=== PATIENT | male | born 1945 | race Caucasian/White ===

== ENCOUNTER 2017-09-25 15:04 | Inpatient (IN) ==
[2017-09-25] MEDS ORDERED: POTASSIUM CHLORIDE 20 MEQ TABLET PO PRN (17:51)
[2017-09-25] MEDS ORDERED: MAGNESIUM SULF RIDER 2 GM in PREMIX 1 EACH IV PRN (17:51)
[2017-09-25] MEDS ORDERED: ALBUTEROL/IPRATROPIUM 3 ML NEB RESP TX PRN (17:51)
[2017-09-25] MEDS ORDERED: ONDANSETRON 4 MG/2 ML VIAL IV PRN (17:51)
[2017-09-25] MEDS ORDERED: ACETAMINOPHEN 325 MG TABLET PO PRN (17:51)
[2017-09-25] MEDS ORDERED: GLUCAGON 1 MG VIAL IM PRN (17:57)
[2017-09-25] MEDS ORDERED: DEXTROSE 50% 25 GM/50 ML VIAL IV PRN (17:57)
[2017-09-25] MEDS: ALBUTEROL/IPRATROPIUM 3 ML NEB RESP TX SCH ×2 (19:50→23:52)
[2017-09-25] MEDS ORDERED: LEVOFLOXACIN INJ 750 MG in PREMIX 1 EACH IV SCH (20:00)
[2017-09-25 20:22] LABS: Basophils % 0.2 % (0.0-0.8); Hematocrit 42.5 VOL% (42.0-52.0); Hemoglobin 14.2 GM/DL (14.0-18.0); Immature Granulocytes % 0.6 %; Immature Granulocytes Absolute 0.03 #; Lymphocytes # 0.4 10*3/uL (1.4-4.0); Lymphocytes % 6.9 % (21.2-54.2); Mean Corpuscular HGB Conc 33.4 GM/DL (32-36); Mean Corpuscular Hemoglobin 29 PG (27-34); Mean Platelet Volume 9.8 FL (9.6-12.0); Monocytes # 0.1 10*3/uL (0.11-0.8); Monocytes % 1.9 % (1.7-12.7); Neutrophils # 4.7 10*3/uL (1.4-7.4); Neutrophils % 90.4 % (38.7-73.9); Platelet Count 215 T/CUMM (130-400); Red Blood Count 4.83 MC/CUMM (3.8-5.5); Red Cell Distribution Width 13.7 % (9.3-17.3); White Blood Count 5.2 T/CUMM (4-12)
[2017-09-25 20:42] LABS: Calcium 8.9 MG/DL (8.5-10.1); Osmolality,Calculated 282.5 MOS/KG (273-304); Potassium 4.4 MMOL/L (3.5-5.1)
[2017-09-25] MEDS: INSULIN LISPRO 100 UNIT/ML SUBCUT SCH (22:17)
[2017-09-25] MEDS: ATORVASTATIN 20 MG TABLET PO SCH (22:18)
[2017-09-25] MEDS: CARVEDILOL 3.125 MG TABLET PO SCH (22:19)
[2017-09-25] MEDS: MOMETASONE 220 MCG/PUFF INHALER 14 DOSE INH SCH (22:20)
[2017-09-25] MEDS ORDERED: methylPREDNISolone SOD SUC 40 MG/1 ML VIAL IV ONE (23:59)
[2017-09-26] MEDS ORDERED: diphenhydrAMINE 50 MG/1 ML VIAL IV ONE ×2 (00:30→23:30)
[2017-09-26] MEDS: ENOXAPARIN 100 MG/ML SYRINGE SUBCUT SCH ×2 (01:16→13:45)
[2017-09-26] MEDS: ALBUTEROL 2.5 MG/3 ML NEB RESP TX PRN (04:48)
[2017-09-26] MEDS: NITROGLYCERIN 2% OINT 1 INCH/GM PACK TOP SCH ×5 (05:14→19:11)
[2017-09-26 06:30] LABS: Basophils % 0.1 % (0.0-0.8); Hematocrit 41.7 VOL% (42.0-52.0); Hemoglobin 13.6 GM/DL (14.0-18.0); Immature Granulocytes % 0.6 %; Immature Granulocytes Absolute 0.05 #; Lymphocytes # 0.8 10*3/uL (1.4-4.0); Lymphocytes % 9.7 % (21.2-54.2); Mean Corpuscular HGB Conc 32.6 GM/DL (32-36); Mean Corpuscular Hemoglobin 29 PG (27-34); Mean Corpuscular Volume 89.1 FL (87-102); Mean Platelet Volume 10.8 FL (9.6-12.0); Monocytes # 0.3 10*3/uL (0.11-0.8); Monocytes % 3.6 % (1.7-12.7); Neutrophils # 6.7 10*3/uL (1.4-7.4); Platelet Count 220 T/CUMM (130-400); Red Blood Count 4.68 MC/CUMM (3.8-5.5); Red Cell Distribution Width 13.9 % (9.3-17.3); White Blood Count 7.8 T/CUMM (4-12)
[2017-09-26 07:16] LABS: Calcium 9.3 MG/DL (8.5-10.1); Osmolality,Calculated 278.8 MOS/KG (273-304); Potassium 4.7 MMOL/L (3.5-5.1); Risk Ratio 3.17; Thyroid Stimulating Hormone 0.775 uIU/ml (0.358-3.74); VLDL CHOLESTEROL 8.6 MG/DL
[2017-09-26] MEDS: ALBUTEROL/IPRATROPIUM 3 ML NEB RESP TX SCH ×3 (08:10→21:33)
[2017-09-26] MEDS ORDERED: NITROGLYCERIN SL 0.4 MG TABLET SL ONE (09:29)
[2017-09-26] MEDS: cefTRIAXone 1,000 MG in SYRINGE 1 EACH IV SCH (09:44)
[2017-09-26] MEDS: MOMETASONE 220 MCG/PUFF INHALER 14 DOSE INH SCH ×2 (09:46→20:58)
[2017-09-26] MEDS: INSULIN LISPRO 100 UNIT/ML SUBCUT SCH ×4 (09:47→21:15)
[2017-09-26] MEDS: PANTOPRAZOLE 40 MG TABLET PO SCH (09:48)
[2017-09-26] MEDS: LISINOPRIL 20 MG TABLET PO SCH (09:48)
[2017-09-26] MEDS: predniSONE 5 MG TABLET PO SCH (09:48)
[2017-09-26] MEDS: CARVEDILOL 3.125 MG TABLET PO SCH ×2 (09:48→20:57)
[2017-09-26] MEDS: ASPIRIN EC 325 MG TABLET PO SCH (09:49)
[2017-09-26] MEDS: AZITHROMYCIN INJ 500 MG in SODIUM CHLORIDE 0.9% 250 ML IV SCH (09:50)
[2017-09-26] MEDS: ACETYLCYSTEINE 20% 800 MG/4 ML VIAL RESP TX SCH ×2 (13:28→21:33)
[2017-09-26] MEDS: ATORVASTATIN 20 MG TABLET PO SCH (20:57)
[2017-09-27] MEDS: ENOXAPARIN 100 MG/ML SYRINGE SUBCUT SCH ×2 (01:05→13:40)
[2017-09-27] MEDS: ALBUTEROL/IPRATROPIUM 3 ML NEB RESP TX SCH ×4 (01:21→19:59)
[2017-09-27] MEDS: ACETYLCYSTEINE 20% 800 MG/4 ML VIAL RESP TX SCH ×4 (01:30→19:57)
[2017-09-27] MEDS: NITROGLYCERIN 2% OINT 1 INCH/GM PACK TOP SCH ×5 (01:49→18:04)
[2017-09-27] MEDS: predniSONE 5 MG TABLET PO SCH (08:56)
[2017-09-27] MEDS: LISINOPRIL 20 MG TABLET PO SCH (08:56)
[2017-09-27] MEDS: CARVEDILOL 3.125 MG TABLET PO SCH ×2 (08:56→21:13)
[2017-09-27] MEDS: ASPIRIN EC 325 MG TABLET PO SCH (08:56)
[2017-09-27] MEDS: PANTOPRAZOLE 40 MG TABLET PO SCH (08:56)
[2017-09-27] MEDS: CLORAZEPATE 3.75 MG TABLET PO PRN (08:56)
[2017-09-27] MEDS: MOMETASONE 220 MCG/PUFF INHALER 14 DOSE INH SCH ×2 (08:58→21:11)
[2017-09-27] MEDS: cefTRIAXone 1,000 MG in SYRINGE 1 EACH IV SCH (08:58)
[2017-09-27] MEDS: AZITHROMYCIN INJ 500 MG in SODIUM CHLORIDE 0.9% 250 ML IV SCH (09:01)
[2017-09-27] MEDS: INSULIN LISPRO 100 UNIT/ML SUBCUT SCH ×4 (09:32→21:13)
[2017-09-27] MEDS: ALBUTEROL 2.5 MG/3 ML NEB RESP TX PRN ×2 (10:04→16:50)
[2017-09-27] MEDS ORDERED: BISACODYL 10 MG SUPP RECTAL PRN (11:44)
[2017-09-27] MEDS ORDERED: FUROSEMIDE 40 MG/4 ML VIAL IV ONE ×2 (12:59→22:00)
[2017-09-27] MEDS ORDERED: POTASSIUM CHLORIDE 20 MEQ TABLET PO ONE (13:10)
[2017-09-27] MEDS ORDERED: methylPREDNISolone SOD SUC 40 MG/1 ML VIAL IV SCH (17:00)
[2017-09-27] MEDS: FAMOTIDINE 20 MG TABLET PO SCH ×2 (18:04→21:13)
[2017-09-27] MEDS: methylPREDNISolone SOD SUC 125 MG/2 ML VIAL IV SCH (18:04)
[2017-09-27] MEDS: diphenhydrAMINE CAP 25 MG CAPSULE PO SCH (18:04)
[2017-09-27] MEDS: ATORVASTATIN 20 MG TABLET PO SCH (21:13)
[2017-09-28] MEDS: CLORAZEPATE 3.75 MG TABLET PO PRN (00:13)
[2017-09-28] MEDS: NITROGLYCERIN 2% OINT 1 INCH/GM PACK TOP SCH ×4 (00:13→18:09)
[2017-09-28] MEDS: diphenhydrAMINE CAP 25 MG CAPSULE PO SCH ×4 (00:13→18:04)
[2017-09-28] MEDS: ENOXAPARIN 100 MG/ML SYRINGE SUBCUT SCH ×2 (00:13→13:28)
[2017-09-28] MEDS: ALBUTEROL/IPRATROPIUM 3 ML NEB RESP TX SCH ×4 (01:20→20:04)
[2017-09-28] MEDS: ACETYLCYSTEINE 20% 800 MG/4 ML VIAL RESP TX SCH ×3 (03:02→20:06)
[2017-09-28 05:24] LABS: Basophils % 0.2 % (0.0-0.8); Hematocrit 43.1 VOL% (42.0-52.0); Hemoglobin 14.6 GM/DL (14.0-18.0); Immature Granulocytes % 0.6 %; Immature Granulocytes Absolute 0.04 #; Lymphocytes # 0.7 10*3/uL (1.4-4.0); Lymphocytes % 10.4 % (21.2-54.2); Mean Corpuscular HGB Conc 33.9 GM/DL (32-36); Mean Corpuscular Hemoglobin 29 PG (27-34); Mean Corpuscular Volume 86.7 FL (87-102); Mean Platelet Volume 10.7 FL (9.6-12.0); Monocytes # 0.2 10*3/uL (0.11-0.8); Monocytes % 3.7 % (1.7-12.7); Neutrophils # 5.6 10*3/uL (1.4-7.4); Neutrophils % 85.1 % (38.7-73.9); Platelet Count 241 T/CUMM (130-400); Red Blood Count 4.97 MC/CUMM (3.8-5.5); Red Cell Distribution Width 13.6 % (9.3-17.3); White Blood Count 6.6 T/CUMM (4-12)
[2017-09-28] MEDS: methylPREDNISolone SOD SUC 125 MG/2 ML VIAL IV SCH ×2 (05:27→18:06)
[2017-09-28 05:56] LABS: Calcium 8.8 MG/DL (8.5-10.1); Osmolality,Calculated 284.7 MOS/KG (273-304); Potassium 4.5 MMOL/L (3.5-5.1)
[2017-09-28] MEDS: INSULIN LISPRO 100 UNIT/ML SUBCUT SCH ×4 (07:55→21:50)
[2017-09-28] MEDS ORDERED: POTASSIUM CHLORIDE RIDER 10 MEQ in PREMIX 1 EACH IV PRN (08:40)
[2017-09-28] MEDS ORDERED: MAGNESIUM SULF RIDER 2 GM in PREMIX 1 EACH IV PRN (08:40)
[2017-09-28] MEDS: cefTRIAXone 1,000 MG in SYRINGE 1 EACH IV SCH (09:00)
[2017-09-28] MEDS: MOMETASONE 220 MCG/PUFF INHALER 14 DOSE INH SCH ×2 (09:00→21:49)
[2017-09-28] MEDS ORDERED: HEPARIN/NACL 0.9% 2 UNITS/ML 0 ML IV ONE (09:02)
[2017-09-28] MEDS: AZITHROMYCIN INJ 500 MG in SODIUM CHLORIDE 0.9% 250 ML IV SCH (09:03)
[2017-09-28] MEDS: FAMOTIDINE 20 MG TABLET PO SCH ×2 (09:05→21:48)
[2017-09-28] MEDS: ASPIRIN EC 325 MG TABLET PO SCH (09:05)
[2017-09-28] MEDS: LISINOPRIL 20 MG TABLET PO SCH (09:05)
[2017-09-28] MEDS: PANTOPRAZOLE 40 MG TABLET PO SCH (09:05)
[2017-09-28] MEDS: POTASSIUM CHLORIDE 20 MEQ TABLET PO SCH (09:05)
[2017-09-28] MEDS: CARVEDILOL 3.125 MG TABLET PO SCH ×2 (09:05→21:48)
[2017-09-28] MEDS ORDERED: diphenhydrAMINE CAP 50 MG CAPSULE PO ONE (11:04)
[2017-09-28] MEDS ORDERED: DIAZEPAM 5 MG TABLET PO ONE (11:05)
[2017-09-28] MEDS: SPIRONOLACTONE 25 MG TABLET PO SCH (18:04)
[2017-09-28] MEDS: FUROSEMIDE 40 MG TABLET PO SCH (18:04)
[2017-09-28] MEDS: ATORVASTATIN 20 MG TABLET PO SCH (21:48)
[2017-09-29] MEDS: ACETYLCYSTEINE 20% 800 MG/4 ML VIAL RESP TX SCH ×5 (00:27→17:53)
[2017-09-29] MEDS: ALBUTEROL/IPRATROPIUM 3 ML NEB RESP TX SCH ×4 (00:27→17:45)
[2017-09-29] MEDS: ENOXAPARIN 100 MG/ML SYRINGE SUBCUT SCH (00:55)
[2017-09-29] MEDS: diphenhydrAMINE CAP 25 MG CAPSULE PO SCH ×4 (00:55→18:47)
[2017-09-29] MEDS: NITROGLYCERIN 2% OINT 1 INCH/GM PACK TOP SCH ×4 (00:55→18:46)
[2017-09-29] MEDS: methylPREDNISolone SOD SUC 125 MG/2 ML VIAL IV SCH (05:32)
[2017-09-29 05:52] LABS: Basophils % 0.1 % (0.0-0.8); Hematocrit 41.3 VOL% (42.0-52.0); Hemoglobin 14.1 GM/DL (14.0-18.0); Immature Granulocytes % 0.5 %; Immature Granulocytes Absolute 0.05 #; Lymphocytes # 1.1 10*3/uL (1.4-4.0); Lymphocytes % 11.6 % (21.2-54.2); Mean Corpuscular HGB Conc 34.1 GM/DL (32-36); Mean Corpuscular Hemoglobin 29 PG (27-34); Mean Platelet Volume 10.8 FL (9.6-12.0); Monocytes # 0.7 10*3/uL (0.11-0.8); Monocytes % 6.7 % (1.7-12.7); Neutrophils # 7.9 10*3/uL (1.4-7.4); Neutrophils % 81.1 % (38.7-73.9); Platelet Count 244 T/CUMM (130-400); Red Cell Distribution Width 13.2 % (9.3-17.3); White Blood Count 9.8 T/CUMM (4-12)
[2017-09-29] MEDS ORDERED: DIAZEPAM 5 MG TABLET PO ONE (06:00)
[2017-09-29] MEDS ORDERED: diphenhydrAMINE CAP 50 MG CAPSULE PO ONE (06:00)
[2017-09-29] MEDS ORDERED: HEPARIN/NACL 0.9% 2 UNITS/ML 2,000 ML IV ONE (06:44)
[2017-09-29] MEDS: PANTOPRAZOLE 40 MG TABLET PO SCH ×2 (06:44→12:43)
[2017-09-29] MEDS ORDERED: LIDOCAINE 1% 20 ML VIAL ONE (06:44)
[2017-09-29] MEDS: LISINOPRIL 20 MG TABLET PO SCH ×2 (06:44→12:42)
[2017-09-29] MEDS: ASPIRIN EC 325 MG TABLET PO SCH ×2 (06:44→12:43)
[2017-09-29] MEDS: FAMOTIDINE 20 MG TABLET PO SCH ×3 (06:44→22:36)
[2017-09-29 06:50] LABS: Calcium 8.8 MG/DL (8.5-10.1); Osmolality,Calculated 291.5 MOS/KG (273-304); Potassium 4.5 MMOL/L (3.5-5.1)
[2017-09-29] MEDS ORDERED: HYDROmorphone 2 MG/1 ML VIAL ONE (07:17)
[2017-09-29] MEDS ORDERED: MIDAZOLAM 2 MG/2 ML VIAL ONE (07:17)
[2017-09-29] MEDS ORDERED: BIVALIRUDIN 250 MG VIAL IV ONE (07:56)
[2017-09-29] MEDS ORDERED: TICAGRELOR 90 MG TABLET ONE (09:09)
[2017-09-29] MEDS ORDERED: ZALEPLON 5 MG CAPSULE PO PRN (09:23)
[2017-09-29] MEDS: cefTRIAXone 1,000 MG in SYRINGE 1 EACH IV SCH (12:18)
[2017-09-29] MEDS: FUROSEMIDE 40 MG TABLET PO SCH (12:41)
[2017-09-29] MEDS: POTASSIUM CHLORIDE 20 MEQ TABLET PO SCH (12:42)
[2017-09-29] MEDS: SPIRONOLACTONE 25 MG TABLET PO SCH (12:42)
[2017-09-29] MEDS: CARVEDILOL 3.125 MG TABLET PO SCH ×2 (12:42→22:35)
[2017-09-29] MEDS: CLORAZEPATE 3.75 MG TABLET PO PRN ×2 (12:42→18:51)
[2017-09-29] MEDS: MOMETASONE 220 MCG/PUFF INHALER 14 DOSE INH SCH ×2 (12:43→22:36)
[2017-09-29] MEDS: INSULIN LISPRO 100 UNIT/ML SUBCUT SCH ×4 (12:44→22:36)
[2017-09-29] MEDS: AZITHROMYCIN INJ 500 MG in SODIUM CHLORIDE 0.9% 250 ML IV SCH (12:44)
[2017-09-29] MEDS ORDERED: TUBERCULIN SKIN TEST 0.1 ML SYRINGE INTRADERM ONE (13:50)
[2017-09-29] MEDS: methylPREDNISolone SOD SUC 40 MG/1 ML VIAL IV SCH (14:43)
[2017-09-29] MEDS: TICAGRELOR 90 MG TABLET PO SCH (22:36)
[2017-09-29] MEDS: ATORVASTATIN 20 MG TABLET PO SCH (22:36)
[2017-09-30] MEDS: ALBUTEROL/IPRATROPIUM 3 ML NEB RESP TX SCH ×4 (00:37→21:25)
[2017-09-30] MEDS: ACETYLCYSTEINE 20% 800 MG/4 ML VIAL RESP TX SCH ×3 (00:44→17:40)
[2017-09-30] MEDS: diphenhydrAMINE CAP 25 MG CAPSULE PO SCH ×2 (01:17→06:43)
[2017-09-30] MEDS: NITROGLYCERIN 2% OINT 1 INCH/GM PACK TOP SCH ×2 (01:18→06:43)
[2017-09-30 04:42] LABS: Basophils % 0.1 % (0.0-0.8); Hematocrit 41.7 VOL% (42.0-52.0); Immature Granulocytes % 0.8 %; Immature Granulocytes Absolute 0.14 #; Lymphocytes # 1.2 10*3/uL (1.4-4.0); Lymphocytes % 7.2 % (21.2-54.2); Mean Corpuscular HGB Conc 33.6 GM/DL (32-36); Mean Corpuscular Hemoglobin 29 PG (27-34); Mean Corpuscular Volume 86.3 FL (87-102); Mean Platelet Volume 10.4 FL (9.6-12.0); Monocytes # 1.3 10*3/uL (0.11-0.8); Monocytes % 7.2 % (1.7-12.7); Neutrophils # 14.6 10*3/uL (1.4-7.4); Neutrophils % 84.7 % (38.7-73.9); Platelet Count 278 T/CUMM (130-400); Red Blood Count 4.83 MC/CUMM (3.8-5.5); Red Cell Distribution Width 13.3 % (9.3-17.3); White Blood Count 17.3 T/CUMM (4-12)
[2017-09-30] MEDS: methylPREDNISolone SOD SUC 40 MG/1 ML VIAL IV SCH ×2 (05:11→14:57)
[2017-09-30 05:24] LABS: CKMB % 7.9 %; Calcium 8.9 MG/DL (8.5-10.1); Osmolality,Calculated 291.4 MOS/KG (273-304); Potassium 4.4 MMOL/L (3.5-5.1)
[2017-09-30 05:25] LABS: Troponin I Only 0.997 NG/ML (0.00-0.045)
[2017-09-30] MEDS: LISINOPRIL 20 MG TABLET PO SCH (08:50)
[2017-09-30] MEDS: PANTOPRAZOLE 40 MG TABLET PO SCH (08:50)
[2017-09-30] MEDS: POTASSIUM CHLORIDE 20 MEQ TABLET PO SCH (08:51)
[2017-09-30] MEDS: FAMOTIDINE 20 MG TABLET PO SCH (08:51)
[2017-09-30] MEDS: TICAGRELOR 90 MG TABLET PO SCH ×2 (08:52→22:16)
[2017-09-30] MEDS: SPIRONOLACTONE 25 MG TABLET PO SCH (08:52)
[2017-09-30] MEDS: ASPIRIN EC 81 MG TABLET PO SCH (08:52)
[2017-09-30] MEDS: FUROSEMIDE 40 MG TABLET PO SCH (08:52)
[2017-09-30] MEDS: CARVEDILOL 3.125 MG TABLET PO SCH ×2 (08:52→22:16)
[2017-09-30] MEDS: cefTRIAXone 1,000 MG in SYRINGE 1 EACH IV SCH (08:53)
[2017-09-30] MEDS: AZITHROMYCIN INJ 500 MG in SODIUM CHLORIDE 0.9% 250 ML IV SCH (08:54)
[2017-09-30] MEDS: INSULIN LISPRO 100 UNIT/ML SUBCUT SCH ×4 (09:00→22:16)
[2017-09-30] MEDS: CLORAZEPATE 3.75 MG TABLET PO PRN (11:40)
[2017-09-30] MEDS: MOMETASONE 220 MCG/PUFF INHALER 14 DOSE INH SCH ×2 (11:41→22:16)
[2017-09-30] MEDS ORDERED: ISOSORBIDE MONONITRATE 30 MG TABLET PO SCH (17:00)
[2017-09-30] MEDS ORDERED: ATORVASTATIN 80 MG TABLET PO SCH (21:00)
[2017-10-01] MEDS: ALBUTEROL/IPRATROPIUM 3 ML NEB RESP TX SCH ×3 (02:35→11:45)
[2017-10-01] MEDS: methylPREDNISolone SOD SUC 40 MG/1 ML VIAL IV SCH (05:42)
[2017-10-01] MEDS: INSULIN LISPRO 100 UNIT/ML SUBCUT SCH ×2 (09:09→13:02)
[2017-10-01] MEDS: TICAGRELOR 90 MG TABLET PO SCH (09:10)
[2017-10-01] MEDS: SPIRONOLACTONE 25 MG TABLET PO SCH (09:10)
[2017-10-01] MEDS: ASPIRIN EC 81 MG TABLET PO SCH (09:10)
[2017-10-01] MEDS: PANTOPRAZOLE 40 MG TABLET PO SCH (09:11)
[2017-10-01] MEDS: FUROSEMIDE 40 MG TABLET PO SCH (09:11)
[2017-10-01] MEDS: LISINOPRIL 20 MG TABLET PO SCH (09:11)
[2017-10-01] MEDS: POTASSIUM CHLORIDE 20 MEQ TABLET PO SCH (09:11)
[2017-10-01] MEDS: CARVEDILOL 3.125 MG TABLET PO SCH (09:11)
[2017-10-01] MEDS ORDERED: BISACODYL 5 MG TABLET PO PRN (09:16)
[2017-10-01] MEDS: MOMETASONE 220 MCG/PUFF INHALER 14 DOSE INH SCH (09:19)
[2017-10-01] MEDS: cefTRIAXone 1,000 MG in SYRINGE 1 EACH IV SCH (09:22)
[2017-10-01] MEDS: AZITHROMYCIN INJ 500 MG in SODIUM CHLORIDE 0.9% 250 ML IV SCH (09:30)
[2017-10-01] MEDS: CLORAZEPATE 3.75 MG TABLET PO PRN (09:35)
[2017-10-01 13:06] VITALS: BP 109/63
== END 2017-10-01 13:08 | disposition swing bed (61) | DRG 246 ==
LOC: EDUNIT# → EDBD → N.ED 15:04 → SUATTDRO 17:24 → N.EDINP 17:24 → N.TELES 18:26
PROVIDERS: ADMIT Hospitalist; ATTEND Internal Medicine Infectious Disease

== ENCOUNTER 2017-10-02 14:44 | Observation (INO) ==
[2017-10-02] MEDS ORDERED: ALBUTEROL/IPRATROPIUM 3 ML NEB RESP TX STA (16:37)
[2017-10-02 18:25] LABS: Lactic Acid 2.1 MMOL/L (0.4-2.0)
[2017-10-02] MEDS ORDERED: ONDANSETRON 4 MG/2 ML VIAL IV PRN (19:40)
[2017-10-02] MEDS ORDERED: ACETAMINOPHEN 325 MG TABLET PO PRN (19:40)
[2017-10-02] MEDS ORDERED: ALBUTEROL 2.5 MG/3 ML NEB RESP TX PRN (19:40)
[2017-10-02 20:06] LABS: Basophils % 0.2 % (0.0-0.8); Eosinophils % 0.1 % (0.00-10.9); Hematocrit 42.8 VOL% (42.0-52.0); Hemoglobin 14.4 GM/DL (14.0-18.0); Immature Granulocytes % 1.3 %; Immature Granulocytes Absolute 0.17 #; Lymphocytes # 1.2 10*3/uL (1.4-4.0); Lymphocytes % 8.9 % (21.2-54.2); Mean Corpuscular HGB Conc 33.6 GM/DL (32-36); Mean Corpuscular Hemoglobin 29 PG (27-34); Mean Corpuscular Volume 87.5 FL (87-102); Mean Platelet Volume 10.5 FL (9.6-12.0); Monocytes # 0.7 10*3/uL (0.11-0.8); Monocytes % 5.4 % (1.7-12.7); Neutrophils # 11.4 10*3/uL (1.4-7.4); Neutrophils % 84.1 % (38.7-73.9); Platelet Count 282 T/CUMM (130-400); Red Blood Count 4.89 MC/CUMM (3.8-5.5); Red Cell Distribution Width 13.1 % (9.3-17.3); White Blood Count 13.6 T/CUMM (4-12)
[2017-10-02 20:30] LABS: Albumin 3.9 G/DL (3.4-5.0); Bilirubin,Total 0.8 MG/DL (0.2-1.0); Calcium 8.8 MG/DL (8.5-10.1); Osmolality,Calculated 288.7 MOS/KG (273-304); Potassium 4.7 MMOL/L (3.5-5.1); Total Protein 6.2 G/DL (6.4-8.3)
[2017-10-02] MEDS: methylPREDNISolone SOD SUC 40 MG/1 ML VIAL IV SCH (22:07)
[2017-10-02] MEDS: MOMETASONE 220 MCG/PUFF INHALER 14 DOSE INH SCH (22:07)
[2017-10-02] MEDS: ATORVASTATIN 80 MG TABLET PO SCH (22:07)
[2017-10-02] MEDS: TICAGRELOR 90 MG TABLET PO SCH (22:07)
[2017-10-02 23:24] LABS: Lactic Acid 2.5 MMOL/L (0.4-2.0)
[2017-10-03] MEDS: ALBUTEROL/IPRATROPIUM 3 ML NEB RESP TX SCH ×4 (02:10→19:15)
[2017-10-03 02:52] LABS: Basophils % 0.2 % (0.0-0.8); Eosinophils # 0.2 10*3/uL (0.0-0.87); Eosinophils % 1.1 % (0.00-10.9); Hematocrit 42.7 VOL% (42.0-52.0); Hemoglobin 14.6 GM/DL (14.0-18.0); Immature Granulocytes % 1.5 %; Immature Granulocytes Absolute 0.22 #; Lymphocytes # 2.2 10*3/uL (1.4-4.0); Lymphocytes % 14.8 % (21.2-54.2); Mean Corpuscular HGB Conc 34.2 GM/DL (32-36); Mean Corpuscular Hemoglobin 30 PG (27-34); Mean Corpuscular Volume 87.3 FL (87-102); Mean Platelet Volume 10.3 FL (9.6-12.0); Monocytes # 1.4 10*3/uL (0.11-0.8); Monocytes % 9.2 % (1.7-12.7); Neutrophils # 10.9 10*3/uL (1.4-7.4); Neutrophils % 73.2 % (38.7-73.9); Platelet Count 281 T/CUMM (130-400); Red Blood Count 4.89 MC/CUMM (3.8-5.5); Red Cell Distribution Width 13.2 % (9.3-17.3); White Blood Count 14.8 T/CUMM (4-12)
[2017-10-03 03:19] LABS: Albumin 4.1 G/DL (3.4-5.0); Bilirubin,Total 0.9 MG/DL (0.2-1.0); Osmolality,Calculated 291.3 MOS/KG (273-304); Potassium 4.5 MMOL/L (3.5-5.1); Total Protein 6.5 G/DL (6.4-8.3)
[2017-10-03] MEDS: methylPREDNISolone SOD SUC 40 MG/1 ML VIAL IV SCH ×4 (04:30→20:39)
[2017-10-03] MEDS ORDERED: LEVOFLOXACIN 750 MG TABLET PO SCH (09:00)
[2017-10-03] MEDS: ASPIRIN EC 81 MG TABLET PO SCH (09:25)
[2017-10-03] MEDS: TICAGRELOR 90 MG TABLET PO SCH ×2 (09:30→20:39)
[2017-10-03] MEDS: CARVEDILOL 3.125 MG TABLET PO SCH ×2 (09:30→20:39)
[2017-10-03] MEDS: MOMETASONE 220 MCG/PUFF INHALER 14 DOSE INH SCH ×3 (09:33→20:39)
[2017-10-03] MEDS: LORazepam 0.5 MG TABLET PO PRN ×2 (11:31→23:14)
[2017-10-03] MEDS: LINEZOLID INJ 600 MG in PREMIX 1 EACH IV SCH (13:47)
[2017-10-03] MEDS: CEFEPIME 1,000 MG in SYRINGE 1 EACH IV SCH ×2 (15:39→23:14)
[2017-10-03] MEDS: ATORVASTATIN 80 MG TABLET PO SCH (20:39)
[2017-10-04] MEDS: ALBUTEROL/IPRATROPIUM 3 ML NEB RESP TX SCH ×3 (01:22→13:01)
[2017-10-04] MEDS: LINEZOLID INJ 600 MG in PREMIX 1 EACH IV SCH (03:04)
[2017-10-04] MEDS: methylPREDNISolone SOD SUC 40 MG/1 ML VIAL IV SCH (03:04)
[2017-10-04] MEDS: CEFEPIME 1,000 MG in SYRINGE 1 EACH IV SCH (06:07)
[2017-10-04] MEDS ORDERED: LEVOFLOXACIN 750 MG TABLET PO SCH (09:00)
[2017-10-04] MEDS: ASPIRIN EC 81 MG TABLET PO SCH (09:17)
[2017-10-04] MEDS: CARVEDILOL 3.125 MG TABLET PO SCH (09:17)
[2017-10-04] MEDS: TICAGRELOR 90 MG TABLET PO SCH (09:17)
[2017-10-04] MEDS: MOMETASONE 220 MCG/PUFF INHALER 14 DOSE INH SCH (09:19)
[2017-10-04] MEDS: LORazepam 0.5 MG TABLET PO PRN (12:39)
[2017-10-04 12:45] VITALS: BP 130/70
[2017-10-04] MEDS ORDERED: methylPREDNISolone SOD SUC 40 MG/1 ML VIAL IV SCH (21:00)
== END 2017-10-04 14:33 ==
LOC: EDUNIT# → EDBD → N.EDINP 14:44 → N.ED 14:44 → SUATTDRO 19:40 → N.TELES 20:21 → N.2E 10-03 22:54
PROVIDERS: ADMIT Internal Medicine Infectious Disease; ATTEND Internal Medicine

== ENCOUNTER 2021-06-12 17:42 | Observation (INO) ==
[2021-06-12] MEDS ORDERED: ALBUTEROL/IPRATROPIUM 3 ML NEB RESP TX STA (19:18)
[2021-06-12] MEDS ORDERED: ACETAMINOPHEN 500 MG TABLET ONE (20:12)
[2021-06-12] MEDS ORDERED: ACETAMINOPHEN 500 MG TABLET PO STA (20:20)
[2021-06-12] MEDS ORDERED: ONDANSETRON 4 MG/2 ML VIAL IV PRN (23:24)
[2021-06-12] MEDS ORDERED: HYDROmorphone 2 MG/1 ML VIAL IV PRN (23:24)
[2021-06-12] MEDS ORDERED: ACETAMINOPHEN 325 MG TABLET PO PRN (23:24)
[2021-06-12] MEDS: SODIUM CHLORIDE 0.45% 1,000 ML IV SCH (23:55)
[2021-06-13] MEDS ORDERED: ALBUTEROL/IPRATROPIUM 3 ML NEB RESP TX SCH ×2 (01:00)
[2021-06-13] MEDS ORDERED: ALBUTEROL/IPRATROPIUM 3 ML NEB RESP TX PRN (05:44)
[2021-06-13] MEDS: ALBUTEROL/IPRATROPIUM 3 ML NEB RESP TX PRN ×2 (05:45→09:00)
[2021-06-13] MEDS: ALBUTEROL/IPRATROPIUM 3 ML NEB RESP TX SCH ×3 (06:07→13:35)
[2021-06-13] MEDS ORDERED: PANTOPRAZOLE 40 MG TABLET PO SCH (09:00)
[2021-06-13] MEDS: SODIUM CHLORIDE 0.45% 1,000 ML IV SCH (09:12)
[2021-06-13] MEDS ORDERED: INFLUENZA VIRUS VACCINE 0.5 ML SYRINGE IM ONE (10:56)
[2021-06-13 11:15] VITALS: BP 154/98
== END 2021-06-13 14:00 | disposition home or self-care (01) ==
LOC: EDBD → EDUNIT# → N.EDINP 17:42 → N.ED 17:42 → N.3E 22:29
PROVIDERS: ADMIT Surgery; ATTEND Surgery

== ENCOUNTER 2021-09-05 23:06 | Inpatient (IN) ==
[2021-09-05] MEDS ORDERED: methylPREDNISolone SOD SUC 125 MG/2 ML VIAL IV STA (23:34)
[2021-09-05] MEDS ORDERED: ALBUTEROL/IPRATROPIUM 3 ML NEB RESP TX STA (23:34)
[2021-09-06 00:02] LABS: ABG Base Excess -4.9 MMOL/L (-2.5-2.5); ABG HCO3 20.4 MMOL/L (20-26); ABG Oxygen Saturation 96.9 % (95-100); ABG PCO2 45.5 MM HG (35-48); ABG TCO2 19.2 MMOL/L (23-27)
[2021-09-06] MEDS ORDERED: MORPHINE 2 MG/1 ML SYRINGE IV STA (00:05)
[2021-09-06] MEDS ORDERED: ONDANSETRON 4 MG/2 ML VIAL IV STA (00:05)
[2021-09-06 00:11] LABS: Basophils % 0.2 % (0.0-0.8); Hematocrit 46.1 VOL% (42.0-52.0); Hemoglobin 14.5 GM/DL (14.0-18.0); Immature Granulocytes % 0.6 %; Lymphocytes # 0.7 10*3/uL (1.4-4.0); Lymphocytes % 3.9 % (21.2-54.2); Mean Corpuscular HGB Conc 31.5 GM/DL (32-36); Mean Corpuscular Volume 91.8 FL (87-102); Mean Platelet Volume 11.3 FL (9.6-12.0); Monocytes % 6.3 % (1.7-12.7); Platelet Count 208 T/CUMM (130-400); Red Blood Count 5.02 MC/CUMM (3.8-5.5); Red Cell Distribution Width 13.4 % (9.3-17.3); White Blood Count 17.8 T/CUMM (4-12)
[2021-09-06 00:29] LABS: Albumin 3.5 G/DL (3.4-5.0); Bilirubin,Total 1.3 MG/DL (0.20-1.00); Calcium 8.5 MG/DL (8.5-10.1); Potassium 4.4 MMOL/L (3.5-5.1); Total Protein 7.3 G/DL (6.4-8.2)
[2021-09-06 01:15] LABS: Lymphocytes 1 % (20-55); Microcytosis 1+; Platelet Estimate Normal; Segmented Neutrophils 93 % (50-85); Total Cells Counted 100
[2021-09-06 01:16] LABS: Stomatocytes Few
[2021-09-06] MEDS ORDERED: LABETALOL 20 MG/4 ML SYRINGE IV STA ×2 (02:38→02:43)
[2021-09-06] MEDS ORDERED: SODIUM BICARBONATE 50 MEQ/50 ML VIAL IV STA (02:43)
[2021-09-06] MEDS ORDERED: GLUCAGON 1 MG VIAL IM PRN (03:56)
[2021-09-06] MEDS ORDERED: LEVOFLOXACIN INJ 750 MG/150 ML PREMIX IV SCH (04:00)
[2021-09-06] MEDS ORDERED: DEXTROSE 50% 25 GM/50 ML SYRINGE IV PRN (04:01)
[2021-09-06] MEDS ORDERED: FUROSEMIDE 40 MG/4 ML VIAL IV SCH (04:01)
[2021-09-06] MEDS ORDERED: NOREPINEPHRINE 8 MG in SODIUM CHLORIDE 0.9% 242 ML IV PRN (04:21)
[2021-09-06 05:42] LABS: ABG Base Excess -8.1 MMOL/L (-2.5-2.5); ABG Oxygen Saturation 97.7 % (95-100); ABG PCO2 50.8 MM HG (35-48); ABG PH 7.215 (7.35-7.45); ABG TCO2 18.1 MMOL/L (23-27)
[2021-09-06] MEDS: ENOXAPARIN 40 MG/0.4 ML SYRINGE SUBCUT SCH (06:10)
[2021-09-06 06:38] LABS: Basophils % 0.1 % (0.0-0.8); Hematocrit 49.3 VOL% (42.0-52.0); Hemoglobin 15.1 GM/DL (14.0-18.0); Immature Granulocytes % 1.8 %; Immature Granulocytes Absolute 0.49 #; Lymphocytes # 0.7 10*3/uL (1.4-4.0); Lymphocytes % 2.6 % (21.2-54.2); Mean Corpuscular HGB Conc 30.6 GM/DL (32-36); Mean Corpuscular Volume 95.7 FL (87-102); Mean Platelet Volume 11.4 FL (9.6-12.0); Monocytes % 5.4 % (1.7-12.7); Neutrophils % 90.1 % (38.7-73.9); Platelet Count 230 T/CUMM (130-400); Red Blood Count 5.15 MC/CUMM (3.8-5.5); Red Cell Distribution Width 13.4 % (9.3-17.3); White Blood Count 26.7 T/CUMM (4-12)
[2021-09-06 06:41] LABS: Bilirubin,Urine Negative (Negative); Blood, Urine Moderate mg/dL (Negative); Glucose,Urine (UA) Negative (Negative); Ketones,Urine 5 mg/dL (Negative); Mucus,Urine Occasional /LPF (Occasional); Nitrite,Urine Negative (Negative); Protein,Urine Negative; RBC,Urine 10 /HPF (0-4); Urine Appearance CLEAR (Clear); Urine Color Yellow (Yellow)
[2021-09-06 06:54] LABS: Barbiturates Screen,Urine Negative (Negative); Benzodiazepines Screen,Urine Negative (Negative); Cannabinoid Screen,Urine Negative (Negative); Opiate Screen,Urine Negative (Negative); Phencyclidine Screen,Urine Negative (Negative)
[2021-09-06 07:03] LABS: Albumin 3.3 G/DL (3.4-5.0); Bilirubin,Total 3.2 MG/DL (0.20-1.00); Calcium 8.9 MG/DL (8.5-10.1); Osmolality,Calculated 273.2 MOS/KG (273-304); Total Protein 7.1 G/DL (6.4-8.2)
[2021-09-06 07:06] LABS: Potassium 6.4 MMOL/L (3.5-5.1)
[2021-09-06] MEDS: methylPREDNISolone SOD SUC 40 MG/1 ML VIAL IV SCH ×3 (07:14→23:10)
[2021-09-06 07:22] LABS: Band Neutrophils 25 % (0-10); Lymphocytes 3 % (20-55); Platelet Estimate Normal; Segmented Neutrophils 67 % (50-85); Total Cells Counted 100
[2021-09-06] MEDS ORDERED: SODIUM CHLORIDE 0.9% 3,150 ML IV ONE (07:44)
[2021-09-06] MEDS: ALBUTEROL/IPRATROPIUM 3 ML NEB RESP TX SCH ×3 (07:45→18:05)
[2021-09-06] MEDS ORDERED: INSULIN REGULAR 10 UNIT, CALCIUM GLUCONATE 1,000 MG in DEXTROSE 10% 250 ML IV ONE (07:50)
[2021-09-06] MEDS: INSULIN REGULAR 100 UNIT/ML SUBCUT SCH ×4 (08:25→22:10)
[2021-09-06] MEDS: PANTOPRAZOLE 40 MG VIAL IV SCH (09:00)
[2021-09-06] MEDS ORDERED: METOPROLOL TARTRATE 5 MG/5 ML VIAL IV SCH (09:00)
[2021-09-06] MEDS: BUDESONIDE/FORMOTEROL 160-4.5 INHALER 6 GM INH SCH ×2 (10:26→17:53)
[2021-09-06 11:30] LABS: Calcium 7.4 MG/DL (8.5-10.1); Osmolality,Calculated 285.5 MOS/KG (273-304); Potassium 4.5 MMOL/L (3.5-5.1)
[2021-09-06] MEDS ORDERED: LORazepam 2 MG/1 ML VIAL IV ONE (12:41)
[2021-09-06] MEDS ORDERED: MORPHINE 2 MG/1 ML SYRINGE IV ONE (12:41)
[2021-09-06] MEDS ORDERED: ONDANSETRON 4 MG/2 ML VIAL IV PRN (12:52)
[2021-09-06] MEDS: LORazepam 2 MG/1 ML VIAL IV PRN (17:02)
[2021-09-06] MEDS: MORPHINE 2 MG/1 ML SYRINGE IV PRN (17:04)
[2021-09-06] MEDS: LORazepam 1 MG TABLET PO SCH ×2 (17:15→22:09)
[2021-09-06 18:55] LABS: CKMB % 7.4 %
[2021-09-06 19:01] LABS: High Sensitive Troponin I* 4824.8 ng/L (0-78)
[2021-09-06] MEDS: SODIUM CHLORIDE 0.9% 1,000 ML IV SCH (19:25)
[2021-09-07] MEDS: BUDESONIDE/FORMOTEROL 160-4.5 INHALER 6 GM INH SCH ×3 (00:35→20:51)
[2021-09-07] MEDS: ALBUTEROL/IPRATROPIUM 3 ML NEB RESP TX SCH ×4 (00:42→19:30)
[2021-09-07 03:39] LABS: ABG Base Excess -7.8 MMOL/L (-2.5-2.5); ABG HCO3 18.2 MMOL/L (20-26); ABG Oxygen Saturation 98.6 % (95-100); ABG PCO2 37.5 MM HG (35-48); ABG PH 7.294 (7.35-7.45); ABG TCO2 15.9 MMOL/L (23-27)
[2021-09-07] MEDS: LORazepam 2 MG/1 ML VIAL IV PRN (03:46)
[2021-09-07] MEDS: ENOXAPARIN 40 MG/0.4 ML SYRINGE SUBCUT SCH (03:46)
[2021-09-07 03:48] LABS: Basophils % 0.1 % (0.0-0.8); Hematocrit 43.7 VOL% (42.0-52.0); Hemoglobin 13.9 GM/DL (14.0-18.0); Immature Granulocytes % 0.8 %; Immature Granulocytes Absolute 0.14 #; Lymphocytes # 0.9 10*3/uL (1.4-4.0); Lymphocytes % 5.1 % (21.2-54.2); Mean Corpuscular HGB Conc 31.8 GM/DL (32-36); Mean Platelet Volume 11.9 FL (9.6-12.0); Platelet Count 108 T/CUMM (130-400); Red Cell Distribution Width 13.2 % (9.3-17.3); White Blood Count 17.6 T/CUMM (4-12)
[2021-09-07 04:18] LABS: Albumin 2.9 G/DL (3.4-5.0); Bilirubin,Total 1.5 MG/DL (0.20-1.00); Calcium 8.2 MG/DL (8.5-10.1); Osmolality,Calculated 290.8 MOS/KG (273-304); Potassium 5.2 MMOL/L (3.5-5.1); Total Protein 6.3 G/DL (6.4-8.2)
[2021-09-07 04:46] LABS: Lymphocytes 5 % (20-55); Segmented Neutrophils 94 % (50-85); Total Cells Counted 100
[2021-09-07 04:47] LABS: Platelet Estimate Adequate
[2021-09-07 04:51] LABS: Microcytosis 1+; Polychromasia Slight
[2021-09-07 04:53] LABS: Hypochromia Slight; Ovalocytes Slight
[2021-09-07] MEDS: methylPREDNISolone SOD SUC 40 MG/1 ML VIAL IV SCH ×3 (05:55→21:04)
[2021-09-07] MEDS ORDERED: SODIUM BICARBONATE 50 MEQ/50 ML VIAL IV ONE (08:40)
[2021-09-07] MEDS: INSULIN REGULAR 100 UNIT/ML SUBCUT SCH ×4 (08:46→20:45)
[2021-09-07] MEDS: PANTOPRAZOLE 40 MG VIAL IV SCH (08:47)
[2021-09-07] MEDS: LORazepam 1 MG TABLET PO SCH ×2 (12:08→20:51)
[2021-09-07] MEDS: SODIUM CHLORIDE 0.9% 1,000 ML IV SCH (16:51)
[2021-09-07] MEDS: MORPHINE 2 MG/1 ML SYRINGE IV PRN (17:09)
[2021-09-07] MEDS: METOPROLOL TARTRATE 25 MG TABLET PO SCH (20:51)
[2021-09-08] MEDS: ALBUTEROL/IPRATROPIUM 3 ML NEB RESP TX SCH ×4 (00:04→19:50)
[2021-09-08] MEDS ORDERED: DEXTROSE 10% 250 ML BAG IV PRN (02:24)
[2021-09-08] MEDS: ENOXAPARIN 40 MG/0.4 ML SYRINGE SUBCUT SCH (04:14)
[2021-09-08 04:22] LABS: ABG Base Excess -1.5 MMOL/L (-2.5-2.5); ABG HCO3 23.1 MMOL/L (20-26); ABG Oxygen Saturation 95.6 % (95-100); ABG PCO2 40.4 MM HG (35-48); ABG PH 7.375 (7.35-7.45); ABG TCO2 20.6 MMOL/L (23-27)
[2021-09-08 04:27] LABS: Basophils % 0.1 % (0.0-0.8); Hematocrit 40.6 VOL% (42.0-52.0); Hemoglobin 13.3 GM/DL (14.0-18.0); Immature Granulocytes % 0.7 %; Immature Granulocytes Absolute 0.09 #; Lymphocytes # 0.5 10*3/uL (1.4-4.0); Lymphocytes % 3.7 % (21.2-54.2); Mean Corpuscular HGB Conc 32.8 GM/DL (32-36); Mean Corpuscular Volume 89.4 FL (87-102); Mean Platelet Volume 11.8 FL (9.6-12.0); Monocytes % 3.3 % (1.7-12.7); NRBC # 0.02 10*3/uL; Neutrophils % 92.2 % (38.7-73.9); Platelet Count 91 T/CUMM (130-400); Red Blood Count 4.54 MC/CUMM (3.8-5.5); Red Cell Distribution Width 13.2 % (9.3-17.3); White Blood Count 12.3 T/CUMM (4-12)
[2021-09-08 04:45] LABS: Lymphocytes 3 % (20-55); Platelet Estimate Decreased; Segmented Neutrophils 96 % (50-85); Total Cells Counted 100
[2021-09-08 04:58] LABS: Albumin 2.6 G/DL (3.4-5.0); Bilirubin,Total 2.3 MG/DL (0.20-1.00); Osmolality,Calculated 300.5 MOS/KG (273-304); Potassium 5.1 MMOL/L (3.5-5.1); Total Protein 5.7 G/DL (6.4-8.2)
[2021-09-08] MEDS: methylPREDNISolone SOD SUC 40 MG/1 ML VIAL IV SCH ×3 (05:40→21:38)
[2021-09-08] MEDS ORDERED: LEVOFLOXACIN INJ 750 MG/150 ML PREMIX IV SCH (06:00)
[2021-09-08] MEDS ORDERED: FONDAPARINUX 2.5 MG/0.5 ML SYRINGE SUBCUT SCH (09:00)
[2021-09-08] MEDS: METOPROLOL TARTRATE 25 MG TABLET PO SCH ×2 (09:13→21:38)
[2021-09-08] MEDS: MEROPENEM 500 MG in SODIUM CHLORIDE 0.9% 100 ML IV SCH ×2 (09:13→17:05)
[2021-09-08] MEDS: LORazepam 1 MG TABLET PO SCH ×2 (09:13→22:36)
[2021-09-08] MEDS: FONDAPARINUX 2.5 MG/0.5 ML SYRINGE SUBCUT SCH (09:14)
[2021-09-08] MEDS: INSULIN REGULAR 100 UNIT/ML SUBCUT SCH ×4 (09:14→21:37)
[2021-09-08] MEDS: PANTOPRAZOLE 40 MG VIAL IV SCH (09:14)
[2021-09-08] MEDS: INSULIN GLARGINE 100 UNIT/ML SUBCUT SCH (09:20)
[2021-09-08] MEDS: BUDESONIDE/FORMOTEROL 160-4.5 INHALER 6 GM INH SCH ×2 (09:28→21:43)
[2021-09-08] MEDS ORDERED: ASPIRIN EC 81 MG TABLET PO SCH (11:00)
[2021-09-08 19:09] LABS: Bilirubin,Urine Negative (Negative); Blood, Urine Small mg/dL (Negative); Glucose,Urine (UA) 50 mg/dL (Negative); Hyaline Casts,Urine 3 /LPF (0-3); Ketones,Urine Negative (Negative); Mucus,Urine Occasional /LPF (Occasional); Nitrite,Urine Negative (Negative); Protein,Urine Negative; RBC,Urine 17 /HPF (0-4); Squamous Epithelial Cell,Urine Occasional /HPF (0-10); Urine Appearance CLEAR (Clear); Urine Color Yellow (Yellow); Urine Specific Gravity 1.021 (1.001-1.035)
[2021-09-08] MEDS: DOCUSATE SODIUM 100 MG CAPSULE PO SCH (21:38)
[2021-09-09] MEDS: MEROPENEM 500 MG in SODIUM CHLORIDE 0.9% 100 ML IV SCH ×2 (01:06→09:01)
[2021-09-09] MEDS: ALBUTEROL/IPRATROPIUM 3 ML NEB RESP TX SCH ×5 (01:55→23:37)
[2021-09-09] MEDS: methylPREDNISolone SOD SUC 40 MG/1 ML VIAL IV SCH ×3 (05:51→21:13)
[2021-09-09] MEDS ORDERED: LEVOFLOXACIN INJ 750 MG/150 ML PREMIX IV SCH (06:00)
[2021-09-09] MEDS: LORazepam 1 MG TABLET PO SCH ×2 (08:59→21:07)
[2021-09-09] MEDS: METOPROLOL TARTRATE 25 MG TABLET PO SCH ×2 (09:00→21:10)
[2021-09-09] MEDS: INSULIN REGULAR 100 UNIT/ML SUBCUT SCH ×4 (09:00→21:10)
[2021-09-09] MEDS: DOCUSATE SODIUM 100 MG CAPSULE PO SCH ×2 (09:00→21:09)
[2021-09-09] MEDS: PANTOPRAZOLE 40 MG TABLET PO SCH (09:00)
[2021-09-09] MEDS: INSULIN GLARGINE 100 UNIT/ML SUBCUT SCH (09:01)
[2021-09-09] MEDS: FONDAPARINUX 2.5 MG/0.5 ML SYRINGE SUBCUT SCH (09:02)
[2021-09-09] MEDS: BUDESONIDE/FORMOTEROL 160-4.5 INHALER 6 GM INH SCH ×2 (09:03→21:10)
[2021-09-09 10:20] LABS: Basophils % 0.1 % (0.0-0.8); Hematocrit 40.3 VOL% (42.0-52.0); Hemoglobin 12.9 GM/DL (14.0-18.0); Immature Granulocytes % 0.8 %; Lymphocytes # 0.3 10*3/uL (1.4-4.0); Lymphocytes % 2.6 % (21.2-54.2); Mean Platelet Volume 12.2 FL (9.6-12.0); Monocytes % 4.3 % (1.7-12.7); Neutrophils % 92.2 % (38.7-73.9); Platelet Count 104 T/CUMM (130-400); Red Blood Count 4.43 MC/CUMM (3.8-5.5); Red Cell Distribution Width 13.3 % (9.3-17.3); White Blood Count 11.8 T/CUMM (4-12)
[2021-09-09 10:38] LABS: Calcium 8.1 MG/DL (8.5-10.1); Osmolality,Calculated 304.4 MOS/KG (273-304); Potassium 4.9 MMOL/L (3.5-5.1)
[2021-09-09 10:39] LABS: Lymphocytes 2 % (20-55); Platelet Estimate Decreased; Segmented Neutrophils 97 % (50-85); Total Cells Counted 100
[2021-09-09 10:40] LABS: Hypochromia Slight; Microcytosis Slight
[2021-09-09 11:04] LABS: ABG Base Excess 0.8 MMOL/L (-2.5-2.5); ABG HCO3 25.2 MMOL/L (20-26); ABG Oxygen Saturation 95.7 % (95-100); ABG PCO2 39.8 MM HG (35-48); ABG PO2 78.9 MM HG (80-95); ABG TCO2 26.5 MMOL/L (23-27)
[2021-09-09] MEDS: ASPIRIN EC 81 MG TABLET PO SCH (12:10)
[2021-09-09] MEDS: APIXABAN 5 MG TABLET PO SCH ×2 (15:18→21:10)
[2021-09-09] MEDS: MORPHINE 2 MG/1 ML SYRINGE IV PRN (23:45)
[2021-09-10 04:42] LABS: ABG Base Excess 3.9 MMOL/L (-2.5-2.5); ABG Oxygen Saturation 96.3 % (95-100); ABG PCO2 40.7 MM HG (35-48); ABG PH 7.456 (7.35-7.45); ABG PO2 82.1 MM HG (80-95); ABG TCO2 29.3 MMOL/L (23-27)
[2021-09-10] MEDS: methylPREDNISolone SOD SUC 40 MG/1 ML VIAL IV SCH ×3 (06:00→22:18)
[2021-09-10 06:09] LABS: Basophils % 0.1 % (0.0-0.8); Hemoglobin 13.1 GM/DL (14.0-18.0); Immature Granulocytes % 0.7 %; Lymphocytes # 0.6 10*3/uL (1.4-4.0); Lymphocytes % 4.3 % (21.2-54.2); Mean Corpuscular Volume 90.9 FL (87-102); Mean Platelet Volume 11.7 FL (9.6-12.0); Monocytes % 5.5 % (1.7-12.7); Neutrophils % 89.4 % (38.7-73.9); Platelet Count 125 T/CUMM (130-400); Red Blood Count 4.51 MC/CUMM (3.8-5.5); Red Cell Distribution Width 13.2 % (9.3-17.3); White Blood Count 13.8 T/CUMM (4-12)
[2021-09-10 06:27] LABS: Lymphocytes 5 % (20-55); Nucleated Red Blood Cells 1 (0-5); Platelet Estimate Normal; Segmented Neutrophils 92 % (50-85); Total Cells Counted 100
[2021-09-10 06:28] LABS: Calcium 8.6 MG/DL (8.5-10.1); Osmolality,Calculated 291.7 MOS/KG (273-304); Potassium 5.1 MMOL/L (3.5-5.1)
[2021-09-10 06:35] LABS: Albumin 2.6 G/DL (3.4-5.0); Bilirubin,Total 1.1 MG/DL (0.20-1.00); Calcium 8.5 MG/DL (8.5-10.1); Osmolality,Calculated 296.3 MOS/KG (273-304); Potassium 5.1 MMOL/L (3.5-5.1); Total Protein 5.5 G/DL (6.4-8.2)
[2021-09-10] MEDS: ALBUTEROL/IPRATROPIUM 3 ML NEB RESP TX SCH ×5 (07:11→22:55)
[2021-09-10] MEDS: INSULIN REGULAR 100 UNIT/ML SUBCUT SCH ×4 (08:53→20:52)
[2021-09-10] MEDS: ASPIRIN EC 81 MG TABLET PO SCH (08:54)
[2021-09-10] MEDS: LEVOFLOXACIN 750 MG TABLET PO SCH (08:54)
[2021-09-10] MEDS: BUDESONIDE/FORMOTEROL 160-4.5 INHALER 6 GM INH SCH ×2 (08:54→20:53)
[2021-09-10] MEDS: PANTOPRAZOLE 40 MG TABLET PO SCH (08:54)
[2021-09-10] MEDS: LORazepam 1 MG TABLET PO SCH ×2 (08:54→20:51)
[2021-09-10] MEDS: INSULIN GLARGINE 100 UNIT/ML SUBCUT SCH (08:54)
[2021-09-10] MEDS: APIXABAN 5 MG TABLET PO SCH ×2 (08:54→20:51)
[2021-09-10] MEDS: METOPROLOL TARTRATE 25 MG TABLET PO SCH ×2 (08:54→20:51)
[2021-09-10] MEDS: DOCUSATE SODIUM 100 MG CAPSULE PO SCH ×2 (08:54→20:51)
[2021-09-10] MEDS: ASCORBIC ACID 500 MG TABLET PO SCH ×2 (12:00→20:54)
[2021-09-10] MEDS: LORazepam 2 MG/1 ML VIAL IV PRN ×4 (13:10→23:01)
[2021-09-10] MEDS: ALBUTEROL/IPRATROPIUM 3 ML NEB RESP TX PRN (15:51)
[2021-09-11] MEDS: ALBUTEROL/IPRATROPIUM 3 ML NEB RESP TX PRN (01:11)
[2021-09-11] MEDS: ALBUTEROL/IPRATROPIUM 3 ML NEB RESP TX SCH ×6 (03:28→23:11)
[2021-09-11] MEDS: methylPREDNISolone SOD SUC 40 MG/1 ML VIAL IV SCH ×3 (05:45→21:33)
[2021-09-11 06:38] LABS: Basophils % 0.1 % (0.0-0.8); Hematocrit 39.2 VOL% (42.0-52.0); Hemoglobin 12.7 GM/DL (14.0-18.0); Immature Granulocytes % 0.8 %; Immature Granulocytes Absolute 0.12 #; Lymphocytes # 0.5 10*3/uL (1.4-4.0); Lymphocytes % 3.8 % (21.2-54.2); Mean Corpuscular HGB Conc 32.4 GM/DL (32-36); Mean Corpuscular Volume 90.1 FL (87-102); Mean Platelet Volume 11.8 FL (9.6-12.0); Monocytes % 4.9 % (1.7-12.7); Neutrophils % 90.4 % (38.7-73.9); Platelet Count 140 T/CUMM (130-400); Red Blood Count 4.35 MC/CUMM (3.8-5.5); Red Cell Distribution Width 13.3 % (9.3-17.3); White Blood Count 14.3 T/CUMM (4-12)
[2021-09-11 07:01] LABS: Calcium 8.4 MG/DL (8.5-10.1); Osmolality,Calculated 291.5 MOS/KG (273-304); Potassium 4.8 MMOL/L (3.5-5.1)
[2021-09-11 07:15] LABS: Hypochromia Slight; Lymphocytes 2 % (20-55); Microcytosis Slight; Platelet Estimate Adequate; Segmented Neutrophils 92 % (50-85); Total Cells Counted 100
[2021-09-11] MEDS: INSULIN REGULAR 100 UNIT/ML SUBCUT SCH ×4 (09:29→21:32)
[2021-09-11] MEDS: LORazepam 1 MG TABLET PO SCH ×2 (09:30→21:31)
[2021-09-11] MEDS: ASPIRIN EC 81 MG TABLET PO SCH (09:30)
[2021-09-11] MEDS: APIXABAN 5 MG TABLET PO SCH ×2 (09:30→21:32)
[2021-09-11] MEDS: LEVOFLOXACIN 750 MG TABLET PO SCH (09:30)
[2021-09-11] MEDS: DOCUSATE SODIUM 100 MG CAPSULE PO SCH ×2 (09:30→21:32)
[2021-09-11] MEDS: METOPROLOL TARTRATE 25 MG TABLET PO SCH ×2 (09:30→21:32)
[2021-09-11] MEDS: BUDESONIDE/FORMOTEROL 160-4.5 INHALER 6 GM INH SCH ×2 (09:30→21:33)
[2021-09-11] MEDS: PANTOPRAZOLE 40 MG TABLET PO SCH (09:30)
[2021-09-11] MEDS: INSULIN GLARGINE 100 UNIT/ML SUBCUT SCH (09:30)
[2021-09-11] MEDS: ASCORBIC ACID 500 MG TABLET PO SCH ×2 (09:31→21:32)
[2021-09-11 11:59] LABS: ABG Base Excess 4.5 MMOL/L (-2.5-2.5); ABG HCO3 28.4 MMOL/L (20-26); ABG Oxygen Saturation 97.7 % (95-100); ABG PCO2 42.9 MM HG (35-48); ABG PH 7.441 (7.35-7.45); ABG PO2 98.8 MM HG (80-95); ABG TCO2 25.2 MMOL/L (23-27)
[2021-09-11] MEDS: LORazepam 2 MG/1 ML VIAL IV PRN (15:55)
[2021-09-12] MEDS: ALBUTEROL/IPRATROPIUM 3 ML NEB RESP TX SCH ×6 (03:03→23:28)
[2021-09-12] MEDS: methylPREDNISolone SOD SUC 40 MG/1 ML VIAL IV SCH (05:38)
[2021-09-12 06:02] LABS: Basophils % 0.2 % (0.0-0.8); Hematocrit 44.2 VOL% (42.0-52.0); Hemoglobin 14.2 GM/DL (14.0-18.0); Immature Granulocytes % 1.4 %; Immature Granulocytes Absolute 0.31 #; Lymphocytes # 0.5 10*3/uL (1.4-4.0); Lymphocytes % 2.3 % (21.2-54.2); Mean Corpuscular HGB Conc 32.1 GM/DL (32-36); Mean Corpuscular Volume 91.1 FL (87-102); Monocytes % 4.3 % (1.7-12.7); Neutrophils % 91.8 % (38.7-73.9); Platelet Count 144 T/CUMM (130-400); Red Blood Count 4.85 MC/CUMM (3.8-5.5); Red Cell Distribution Width 13.5 % (9.3-17.3); White Blood Count 21.4 T/CUMM (4-12)
[2021-09-12 06:40] LABS: Lymphocytes 3 % (20-55); Platelet Estimate Adequate; Segmented Neutrophils 95 % (50-85); Total Cells Counted 100
[2021-09-12 06:56] LABS: Calcium 8.5 MG/DL (8.5-10.1); Osmolality,Calculated 287.8 MOS/KG (273-304); Potassium 4.8 MMOL/L (3.5-5.1)
[2021-09-12] MEDS: APIXABAN 5 MG TABLET PO SCH ×2 (09:23→21:02)
[2021-09-12] MEDS: DOCUSATE SODIUM 100 MG CAPSULE PO SCH ×2 (09:23→21:02)
[2021-09-12] MEDS: LEVOFLOXACIN 750 MG TABLET PO SCH (09:23)
[2021-09-12] MEDS: PANTOPRAZOLE 40 MG TABLET PO SCH (09:23)
[2021-09-12] MEDS: ASPIRIN EC 81 MG TABLET PO SCH (09:23)
[2021-09-12] MEDS: METOPROLOL TARTRATE 25 MG TABLET PO SCH ×2 (09:23→21:02)
[2021-09-12] MEDS: INSULIN GLARGINE 100 UNIT/ML SUBCUT SCH (09:23)
[2021-09-12] MEDS: LORazepam 1 MG TABLET PO SCH ×2 (09:23→21:02)
[2021-09-12] MEDS: INSULIN REGULAR 100 UNIT/ML SUBCUT SCH ×4 (09:23→20:50)
[2021-09-12] MEDS: BUDESONIDE/FORMOTEROL 160-4.5 INHALER 6 GM INH SCH ×2 (09:24→21:03)
[2021-09-12] MEDS: ASCORBIC ACID 500 MG TABLET PO SCH ×2 (09:24→21:02)
[2021-09-12 17:52] LABS: Bilirubin,Urine Negative (Negative); Blood, Urine Large mg/dL (Negative); Glucose,Urine (UA) 50 mg/dL (Negative); Ketones,Urine Negative (Negative); Mucus,Urine Occasional /LPF (Occasional); Nitrite,Urine Negative (Negative); Protein,Urine Negative; RBC,Urine 51 /HPF (0-4); Squamous Epithelial Cell,Urine Occasional /HPF (0-10); Urine Appearance Slightly Hazy (Clear); Urine Color Yellow (Yellow); Urine Specific Gravity 1.012 (1.001-1.035); Urine Urobilinogen < 2.0 EU/DL (<2.0)
[2021-09-13] MEDS: ALBUTEROL/IPRATROPIUM 3 ML NEB RESP TX SCH ×6 (02:21→23:37)
[2021-09-13] MEDS ORDERED: PHENOL 1.4% THROAT SPRAY 177 ML BOTTLE PO PRN (02:38)
[2021-09-13 05:38] LABS: Basophils # 0.1 10*3/uL (0.0-0.2); Basophils % 0.3 % (0.0-0.8); Eosinophils # 0.1 10*3/uL (0.0-0.87); Eosinophils % 0.4 % (0.00-10.9); Hematocrit 47.7 VOL% (42.0-52.0); Hemoglobin 15.6 GM/DL (14.0-18.0); Immature Granulocytes % 1.9 %; Immature Granulocytes Absolute 0.44 #; Lymphocytes # 1.3 10*3/uL (1.4-4.0); Lymphocytes % 5.3 % (21.2-54.2); Mean Corpuscular HGB Conc 32.7 GM/DL (32-36); Mean Corpuscular Volume 89.8 FL (87-102); Mean Platelet Volume 11.4 FL (9.6-12.0); Monocytes % 6.2 % (1.7-12.7); Neutrophils % 85.9 % (38.7-73.9); Platelet Count 180 T/CUMM (130-400); Red Blood Count 5.31 MC/CUMM (3.8-5.5); Red Cell Distribution Width 13.8 % (9.3-17.3); White Blood Count 23.4 T/CUMM (4-12)
[2021-09-13 05:57] LABS: Calcium 8.4 MG/DL (8.5-10.1); Potassium 4.7 MMOL/L (3.5-5.1)
[2021-09-13 06:00] LABS: Lymphocytes 5 % (20-55); Platelet Estimate Normal; Segmented Neutrophils 90 % (50-85); Total Cells Counted 100
[2021-09-13] MEDS: INSULIN REGULAR 100 UNIT/ML SUBCUT SCH ×4 (07:30→22:14)
[2021-09-13] MEDS: ASCORBIC ACID 500 MG TABLET PO SCH ×2 (08:56→22:15)
[2021-09-13] MEDS: LORazepam 1 MG TABLET PO SCH ×2 (08:56→22:15)
[2021-09-13] MEDS: METOPROLOL TARTRATE 25 MG TABLET PO SCH ×2 (08:56→22:16)
[2021-09-13] MEDS: PANTOPRAZOLE 40 MG TABLET PO SCH (08:56)
[2021-09-13] MEDS: predniSONE 20 MG TABLET PO SCH (08:56)
[2021-09-13] MEDS: ASPIRIN EC 81 MG TABLET PO SCH (08:56)
[2021-09-13] MEDS: BUDESONIDE/FORMOTEROL 160-4.5 INHALER 6 GM INH SCH ×2 (08:56→22:16)
[2021-09-13] MEDS: DOCUSATE SODIUM 100 MG CAPSULE PO SCH ×2 (08:57→22:16)
[2021-09-13] MEDS: LEVOFLOXACIN 750 MG TABLET PO SCH (08:57)
[2021-09-13] MEDS: INSULIN GLARGINE 100 UNIT/ML SUBCUT SCH (08:57)
[2021-09-13] MEDS: APIXABAN 5 MG TABLET PO SCH ×2 (08:57→22:15)
[2021-09-13] MEDS ORDERED: MYLANTA/LIDO VISC 2:1 300 ML BOTTLE SWISH/SWAL ONE (13:39)
[2021-09-13] MEDS ORDERED: MORPHINE 10 MG/5 ML UDCUP PO PRN (13:41)
[2021-09-13] MEDS: MORPHINE 2 MG/1 ML SYRINGE IV PRN (13:59)
[2021-09-13] MEDS: MYLANTA/LIDO VISC 2:1 300 ML BOTTLE SWISH/SWAL PRN (16:30)
[2021-09-14] MEDS: ALBUTEROL/IPRATROPIUM 3 ML NEB RESP TX SCH ×6 (03:37→23:01)
[2021-09-14] MEDS: ASCORBIC ACID 500 MG TABLET PO SCH ×2 (09:29→23:02)
[2021-09-14] MEDS: LORazepam 1 MG TABLET PO SCH ×2 (09:29→23:02)
[2021-09-14] MEDS: DOCUSATE SODIUM 100 MG CAPSULE PO SCH ×2 (09:29→23:02)
[2021-09-14] MEDS: LEVOFLOXACIN 750 MG TABLET PO SCH (09:29)
[2021-09-14] MEDS: BUDESONIDE/FORMOTEROL 160-4.5 INHALER 6 GM INH SCH ×2 (09:29→23:59)
[2021-09-14] MEDS: predniSONE 20 MG TABLET PO SCH (09:29)
[2021-09-14] MEDS: ASPIRIN EC 81 MG TABLET PO SCH (09:29)
[2021-09-14] MEDS: METOPROLOL TARTRATE 25 MG TABLET PO SCH ×2 (09:29→23:01)
[2021-09-14] MEDS: MYLANTA/LIDO VISC 2:1 300 ML BOTTLE SWISH/SWAL PRN ×4 (09:29→23:05)
[2021-09-14] MEDS: APIXABAN 5 MG TABLET PO SCH ×2 (09:29→23:01)
[2021-09-14] MEDS: PANTOPRAZOLE 40 MG TABLET PO SCH (09:29)
[2021-09-14] MEDS: INSULIN REGULAR 100 UNIT/ML SUBCUT SCH ×4 (09:29→23:02)
[2021-09-14] MEDS: INSULIN GLARGINE 100 UNIT/ML SUBCUT SCH (10:28)
[2021-09-15 01:39] LABS: Bilirubin,Urine Negative (Negative); Blood, Urine Negative (Negative); Glucose,Urine (UA) Negative (Negative); Ketones,Urine Negative (Negative); Mucus,Urine Occasional /LPF (Occasional); Nitrite,Urine Negative (Negative); Protein,Urine Negative; RBC,Urine 5 /HPF (0-4); Urine Appearance CLEAR (Clear); Urine Color Yellow (Yellow); Urine Specific Gravity 1.012 (1.001-1.035); Urine Urobilinogen < 2.0 EU/DL (<2.0)
[2021-09-15] MEDS: ALBUTEROL/IPRATROPIUM 3 ML NEB RESP TX SCH ×6 (04:24→23:51)
[2021-09-15 05:34] LABS: Basophils % 0.2 % (0.0-0.8); Eosinophils # 0.2 10*3/uL (0.0-0.87); Eosinophils % 0.8 % (0.00-10.9); Hematocrit 46.6 VOL% (42.0-52.0); Hemoglobin 15.3 GM/DL (14.0-18.0); Immature Granulocytes % 1.2 %; Immature Granulocytes Absolute 0.22 #; Lymphocytes # 1.4 10*3/uL (1.4-4.0); Lymphocytes % 7.4 % (21.2-54.2); Mean Corpuscular HGB Conc 32.8 GM/DL (32-36); Mean Corpuscular Volume 89.1 FL (87-102); Mean Platelet Volume 11.4 FL (9.6-12.0); Monocytes % 5.5 % (1.7-12.7); Neutrophils % 84.9 % (38.7-73.9); Platelet Count 192 T/CUMM (130-400); Red Blood Count 5.23 MC/CUMM (3.8-5.5); Red Cell Distribution Width 13.9 % (9.3-17.3); White Blood Count 18.2 T/CUMM (4-12)
[2021-09-15 06:03] LABS: Calcium 8.1 MG/DL (8.5-10.1); Osmolality,Calculated 279.8 MOS/KG (273-304); Potassium 4.7 MMOL/L (3.5-5.1)
[2021-09-15] MEDS: INSULIN REGULAR 100 UNIT/ML SUBCUT SCH ×4 (07:58→21:35)
[2021-09-15] MEDS: predniSONE 20 MG TABLET PO SCH (08:57)
[2021-09-15] MEDS: DOCUSATE SODIUM 100 MG CAPSULE PO SCH ×2 (08:57→21:34)
[2021-09-15] MEDS: LORazepam 1 MG TABLET PO SCH ×2 (08:57→21:33)
[2021-09-15] MEDS: BUDESONIDE/FORMOTEROL 160-4.5 INHALER 6 GM INH SCH ×2 (08:57→21:00)
[2021-09-15] MEDS: APIXABAN 5 MG TABLET PO SCH ×2 (08:58→21:34)
[2021-09-15] MEDS: LEVOFLOXACIN 750 MG TABLET PO SCH (08:58)
[2021-09-15] MEDS: METOPROLOL TARTRATE 25 MG TABLET PO SCH ×2 (08:58→21:34)
[2021-09-15] MEDS: INSULIN GLARGINE 100 UNIT/ML SUBCUT SCH (08:58)
[2021-09-15] MEDS: ASPIRIN EC 81 MG TABLET PO SCH (08:58)
[2021-09-15] MEDS: PANTOPRAZOLE 40 MG TABLET PO SCH (08:58)
[2021-09-15] MEDS: MYLANTA/LIDO VISC 2:1 300 ML BOTTLE SWISH/SWAL PRN (08:58)
[2021-09-15] MEDS: ASCORBIC ACID 500 MG TABLET PO SCH ×2 (08:58→21:34)
[2021-09-15] MEDS ORDERED: FLUCONAZOLE INJ 200 MG/100 ML PREMIX IV SCH (13:00)
[2021-09-15] MEDS: MYLANTA/LIDO VISC/NYST 180 ML BOTTLE SWISH/SWAL SCH ×2 (17:39→21:35)
[2021-09-16] MEDS: ALBUTEROL/IPRATROPIUM 3 ML NEB RESP TX SCH ×6 (03:31→23:39)
[2021-09-16 06:30] LABS: Basophils % 0.1 % (0.0-0.8); Eosinophils # 0.1 10*3/uL (0.0-0.87); Eosinophils % 0.6 % (0.00-10.9); Immature Granulocytes % 0.8 %; Immature Granulocytes Absolute 0.13 #; Lymphocytes # 1.5 10*3/uL (1.4-4.0); Lymphocytes % 9.2 % (21.2-54.2); Mean Corpuscular HGB Conc 31.9 GM/DL (32-36); Mean Corpuscular Volume 90.2 FL (87-102); Mean Platelet Volume 11.8 FL (9.6-12.0); Neutrophils % 83.3 % (38.7-73.9); Platelet Count 171 T/CUMM (130-400); Red Blood Count 5.21 MC/CUMM (3.8-5.5); Red Cell Distribution Width 13.9 % (9.3-17.3)
[2021-09-16 06:49] LABS: Osmolality,Calculated 276.8 MOS/KG (273-304); Potassium 4.5 MMOL/L (3.5-5.1)
[2021-09-16] MEDS: IBUPROFEN 100 MG/5 ML UDCUP PO PRN ×2 (07:06→18:05)
[2021-09-16] MEDS: predniSONE 20 MG TABLET PO SCH (09:04)
[2021-09-16] MEDS: LORazepam 1 MG TABLET PO SCH ×2 (09:04→20:48)
[2021-09-16] MEDS: DOCUSATE SODIUM 100 MG CAPSULE PO SCH ×2 (09:04→20:49)
[2021-09-16] MEDS: METOPROLOL TARTRATE 25 MG TABLET PO SCH ×2 (09:04→23:29)
[2021-09-16] MEDS: PANTOPRAZOLE 40 MG TABLET PO SCH (09:04)
[2021-09-16] MEDS: APIXABAN 5 MG TABLET PO SCH ×3 (09:04→20:49)
[2021-09-16] MEDS: ASPIRIN EC 81 MG TABLET PO SCH (09:04)
[2021-09-16] MEDS: ASCORBIC ACID 500 MG TABLET PO SCH ×2 (09:05→20:49)
[2021-09-16] MEDS: MYLANTA/LIDO VISC/NYST 180 ML BOTTLE SWISH/SWAL SCH ×4 (09:06→20:48)
[2021-09-16] MEDS: INSULIN REGULAR 100 UNIT/ML SUBCUT SCH ×4 (09:23→20:49)
[2021-09-16] MEDS: INSULIN GLARGINE 100 UNIT/ML SUBCUT SCH (09:52)
[2021-09-16] MEDS: BUDESONIDE/FORMOTEROL 160-4.5 INHALER 6 GM INH SCH ×2 (10:01→20:50)
[2021-09-16] MEDS ORDERED: TUBERCULIN SKIN TEST 0.1 ML SYRINGE INTRADERM ONE (13:30)
[2021-09-16] MEDS: FLUCONAZOLE 200 MG TABLET PO SCH (13:34)
[2021-09-17] MEDS: ALBUTEROL/IPRATROPIUM 3 ML NEB RESP TX SCH ×6 (03:05→23:47)
[2021-09-17] MEDS: IBUPROFEN 100 MG/5 ML UDCUP PO PRN ×3 (03:54→23:59)
[2021-09-17 05:31] LABS: Basophils % 0.1 % (0.0-0.8); Eosinophils # 0.1 10*3/uL (0.0-0.87); Eosinophils % 0.4 % (0.00-10.9); Hematocrit 46.4 VOL% (42.0-52.0); Immature Granulocytes % 0.9 %; Immature Granulocytes Absolute 0.15 #; Lymphocytes # 1.5 10*3/uL (1.4-4.0); Lymphocytes % 8.9 % (21.2-54.2); Mean Corpuscular HGB Conc 32.3 GM/DL (32-36); Mean Corpuscular Volume 90.4 FL (87-102); Mean Platelet Volume 11.4 FL (9.6-12.0); Monocytes % 6.5 % (1.7-12.7); Neutrophils % 83.2 % (38.7-73.9); Platelet Count 187 T/CUMM (130-400); Red Blood Count 5.13 MC/CUMM (3.8-5.5); Red Cell Distribution Width 13.9 % (9.3-17.3); White Blood Count 16.3 T/CUMM (4-12)
[2021-09-17 05:48] LABS: Calcium 8.3 MG/DL (8.5-10.1); Potassium 4.5 MMOL/L (3.5-5.1)
[2021-09-17] MEDS: INSULIN REGULAR 100 UNIT/ML SUBCUT SCH ×4 (08:04→22:21)
[2021-09-17] MEDS: FLUCONAZOLE 200 MG TABLET PO SCH (08:57)
[2021-09-17] MEDS: BUDESONIDE/FORMOTEROL 160-4.5 INHALER 6 GM INH SCH ×2 (08:57→22:21)
[2021-09-17] MEDS: METOPROLOL TARTRATE 25 MG TABLET PO SCH ×2 (08:57→22:21)
[2021-09-17] MEDS: ASCORBIC ACID 500 MG TABLET PO SCH ×2 (08:57→22:21)
[2021-09-17] MEDS: DOCUSATE SODIUM 100 MG CAPSULE PO SCH ×2 (08:57→22:21)
[2021-09-17] MEDS: LORazepam 1 MG TABLET PO SCH ×2 (08:57→22:21)
[2021-09-17] MEDS: INSULIN GLARGINE 100 UNIT/ML SUBCUT SCH (08:57)
[2021-09-17] MEDS: APIXABAN 5 MG TABLET PO SCH ×2 (08:57→22:21)
[2021-09-17] MEDS: predniSONE 20 MG TABLET PO SCH (08:57)
[2021-09-17] MEDS: PANTOPRAZOLE 40 MG TABLET PO SCH (08:57)
[2021-09-17] MEDS: ASPIRIN EC 81 MG TABLET PO SCH (08:57)
[2021-09-17] MEDS: MYLANTA/LIDO VISC/NYST 180 ML BOTTLE SWISH/SWAL SCH ×4 (08:57→22:21)
[2021-09-18] MEDS: ALBUTEROL/IPRATROPIUM 3 ML NEB RESP TX SCH ×6 (03:15→23:07)
[2021-09-18 06:49] LABS: Basophils % 0.2 % (0.0-0.8); Eosinophils % 0.1 % (0.00-10.9); Hematocrit 45.9 VOL% (42.0-52.0); Hemoglobin 14.7 GM/DL (14.0-18.0); Immature Granulocytes % 0.7 %; Immature Granulocytes Absolute 0.15 #; Lymphocytes # 0.9 10*3/uL (1.4-4.0); Lymphocytes % 4.6 % (21.2-54.2); Mean Corpuscular Volume 90.7 FL (87-102); Mean Platelet Volume 11.6 FL (9.6-12.0); Monocytes % 5.6 % (1.7-12.7); Neutrophils % 88.8 % (38.7-73.9); Platelet Count 198 T/CUMM (130-400); Red Blood Count 5.06 MC/CUMM (3.8-5.5); White Blood Count 20.2 T/CUMM (4-12)
[2021-09-18 07:16] LABS: Eosinophils 1 % (0-10); Lymphocytes 7 % (20-55); Platelet Estimate Adequate; Segmented Neutrophils 91 % (50-85); Total Cells Counted 100
[2021-09-18 07:23] LABS: Albumin 2.7 G/DL (3.4-5.0); Bilirubin,Total 1.4 MG/DL (0.20-1.00); Calcium 8.6 MG/DL (8.5-10.1); Osmolality,Calculated 277.1 MOS/KG (273-304); Potassium 5.4 MMOL/L (3.5-5.1); Total Protein 5.7 G/DL (6.4-8.2)
[2021-09-18] MEDS: APIXABAN 5 MG TABLET PO SCH ×2 (08:36→20:59)
[2021-09-18] MEDS: FLUCONAZOLE 200 MG TABLET PO SCH (08:36)
[2021-09-18] MEDS: INSULIN GLARGINE 100 UNIT/ML SUBCUT SCH (08:36)
[2021-09-18] MEDS: predniSONE 20 MG TABLET PO SCH (08:36)
[2021-09-18] MEDS: DOCUSATE SODIUM 100 MG CAPSULE PO SCH ×2 (08:36→20:58)
[2021-09-18] MEDS: IBUPROFEN 100 MG/5 ML UDCUP PO PRN ×2 (08:36→18:38)
[2021-09-18] MEDS: PANTOPRAZOLE 40 MG TABLET PO SCH (08:36)
[2021-09-18] MEDS: BUDESONIDE/FORMOTEROL 160-4.5 INHALER 6 GM INH SCH ×2 (08:36→21:40)
[2021-09-18] MEDS: METOPROLOL TARTRATE 25 MG TABLET PO SCH ×2 (08:36→20:58)
[2021-09-18] MEDS: ASPIRIN EC 81 MG TABLET PO SCH (08:36)
[2021-09-18] MEDS: ASCORBIC ACID 500 MG TABLET PO SCH ×2 (08:36→20:58)
[2021-09-18] MEDS: MYLANTA/LIDO VISC/NYST 180 ML BOTTLE SWISH/SWAL SCH ×4 (08:36→21:39)
[2021-09-18] MEDS: INSULIN REGULAR 100 UNIT/ML SUBCUT SCH ×4 (08:36→21:38)
[2021-09-18] MEDS ORDERED: SODIUM POLYSTYRENE SULFATE 15 GM/60 ML BOTTLE PO STA (12:30)
[2021-09-18] MEDS ORDERED: SODIUM CHLORIDE 0.9% 250 ML IV ONE (12:32)
[2021-09-18] MEDS ORDERED: BENZOCAINE 20% ORAL GEL 11.9 GM TUBE TOP PRN (12:34)
[2021-09-18] MEDS ORDERED: PHENOL 1.4% THROAT SPRAY 177 ML BOTTLE PO PRN (23:43)
[2021-09-19] MEDS: LORazepam 1 MG TABLET PO SCH ×3 (00:30→21:29)
[2021-09-19] MEDS: IBUPROFEN 100 MG/5 ML UDCUP PO PRN ×3 (00:31→14:30)
[2021-09-19] MEDS: ALBUTEROL/IPRATROPIUM 3 ML NEB RESP TX SCH ×7 (03:02→23:42)
[2021-09-19 05:43] LABS: Basophils % 0.1 % (0.0-0.8); Eosinophils % 0.2 % (0.00-10.9); Hemoglobin 14.3 GM/DL (14.0-18.0); Immature Granulocytes % 0.8 %; Immature Granulocytes Absolute 0.13 #; Lymphocytes # 1.4 10*3/uL (1.4-4.0); Lymphocytes % 8.3 % (21.2-54.2); Mean Corpuscular HGB Conc 31.8 GM/DL (32-36); Mean Corpuscular Volume 90.9 FL (87-102); Mean Platelet Volume 11.6 FL (9.6-12.0); Neutrophils % 82.6 % (38.7-73.9); Platelet Count 220 T/CUMM (130-400); Red Blood Count 4.95 MC/CUMM (3.8-5.5); Red Cell Distribution Width 13.9 % (9.3-17.3); White Blood Count 16.7 T/CUMM (4-12)
[2021-09-19 05:59] LABS: Calcium 8.4 MG/DL (8.5-10.1); Osmolality,Calculated 281.7 MOS/KG (273-304); Potassium 5.1 MMOL/L (3.5-5.1)
[2021-09-19] MEDS: FLUCONAZOLE 200 MG TABLET PO SCH (08:45)
[2021-09-19] MEDS: INSULIN GLARGINE 100 UNIT/ML SUBCUT SCH (08:45)
[2021-09-19] MEDS: ASCORBIC ACID 500 MG TABLET PO SCH ×2 (08:45→21:30)
[2021-09-19] MEDS: ASPIRIN EC 81 MG TABLET PO SCH (08:45)
[2021-09-19] MEDS: PANTOPRAZOLE 40 MG TABLET PO SCH (08:45)
[2021-09-19] MEDS: METOPROLOL TARTRATE 25 MG TABLET PO SCH ×2 (08:45→21:30)
[2021-09-19] MEDS: DOCUSATE SODIUM 100 MG CAPSULE PO SCH ×2 (08:45→21:30)
[2021-09-19] MEDS: predniSONE 20 MG TABLET PO SCH (08:46)
[2021-09-19] MEDS: APIXABAN 5 MG TABLET PO SCH ×2 (08:46→21:30)
[2021-09-19] MEDS: BUDESONIDE/FORMOTEROL 160-4.5 INHALER 6 GM INH SCH ×2 (08:46→21:29)
[2021-09-19] MEDS: MYLANTA/LIDO VISC/NYST 180 ML BOTTLE SWISH/SWAL SCH ×4 (08:48→21:29)
[2021-09-19] MEDS: INSULIN REGULAR 100 UNIT/ML SUBCUT SCH ×4 (09:47→21:30)
[2021-09-20] MEDS: ALBUTEROL/IPRATROPIUM 3 ML NEB RESP TX SCH ×6 (03:26→23:51)
[2021-09-20] MEDS: IBUPROFEN 100 MG/5 ML UDCUP PO PRN ×2 (05:28→18:40)
[2021-09-20] MEDS: LORazepam 1 MG TABLET PO SCH ×2 (08:57→21:37)
[2021-09-20] MEDS: MYLANTA/LIDO VISC/NYST 180 ML BOTTLE SWISH/SWAL SCH ×4 (09:08→21:37)
[2021-09-20] MEDS: INSULIN GLARGINE 100 UNIT/ML SUBCUT SCH (09:09)
[2021-09-20] MEDS: predniSONE 20 MG TABLET PO SCH (09:09)
[2021-09-20] MEDS: FLUCONAZOLE 200 MG TABLET PO SCH (09:09)
[2021-09-20] MEDS: ASPIRIN EC 81 MG TABLET PO SCH (09:09)
[2021-09-20] MEDS: APIXABAN 5 MG TABLET PO SCH ×2 (09:09→21:34)
[2021-09-20] MEDS: ASCORBIC ACID 500 MG TABLET PO SCH ×2 (09:09→21:35)
[2021-09-20] MEDS: METOPROLOL TARTRATE 25 MG TABLET PO SCH ×2 (09:09→21:36)
[2021-09-20] MEDS: DOCUSATE SODIUM 100 MG CAPSULE PO SCH ×2 (09:09→21:35)
[2021-09-20] MEDS: PANTOPRAZOLE 40 MG TABLET PO SCH ×2 (09:09→21:36)
[2021-09-20] MEDS: BUDESONIDE/FORMOTEROL 160-4.5 INHALER 6 GM INH SCH ×2 (09:12→21:36)
[2021-09-20] MEDS: INSULIN REGULAR 100 UNIT/ML SUBCUT SCH ×4 (09:56→21:37)
[2021-09-21] MEDS: ALBUTEROL/IPRATROPIUM 3 ML NEB RESP TX SCH ×6 (03:50→23:09)
[2021-09-21 05:46] LABS: Basophils % 0.1 % (0.0-0.8); Eosinophils % 0.2 % (0.00-10.9); Hematocrit 43.9 VOL% (42.0-52.0); Hemoglobin 14.2 GM/DL (14.0-18.0); Immature Granulocytes % 0.6 %; Immature Granulocytes Absolute 0.09 #; Lymphocytes # 1.2 10*3/uL (1.4-4.0); Lymphocytes % 8.6 % (21.2-54.2); Mean Corpuscular HGB Conc 32.3 GM/DL (32-36); Mean Corpuscular Volume 90.3 FL (87-102); Mean Platelet Volume 11.3 FL (9.6-12.0); Monocytes % 6.7 % (1.7-12.7); Neutrophils % 83.8 % (38.7-73.9); Platelet Count 207 T/CUMM (130-400); Red Blood Count 4.86 MC/CUMM (3.8-5.5)
[2021-09-21 05:57] LABS: Calcium 8.4 MG/DL (8.5-10.1); Potassium 4.6 MMOL/L (3.5-5.1)
[2021-09-21] MEDS: INSULIN REGULAR 100 UNIT/ML SUBCUT SCH ×4 (08:34→21:26)
[2021-09-21] MEDS: MYLANTA/LIDO VISC/NYST 180 ML BOTTLE SWISH/SWAL SCH ×4 (09:28→21:31)
[2021-09-21] MEDS: INSULIN GLARGINE 100 UNIT/ML SUBCUT SCH (10:22)
[2021-09-21] MEDS: ASCORBIC ACID 500 MG TABLET PO SCH ×2 (10:23→21:26)
[2021-09-21] MEDS: ASPIRIN EC 81 MG TABLET PO SCH (10:23)
[2021-09-21] MEDS: APIXABAN 5 MG TABLET PO SCH ×2 (10:23→21:26)
[2021-09-21] MEDS: PANTOPRAZOLE 40 MG TABLET PO SCH ×2 (10:23→21:26)
[2021-09-21] MEDS: predniSONE 10 MG TABLET PO SCH (10:23)
[2021-09-21] MEDS: IBUPROFEN 100 MG/5 ML UDCUP PO PRN ×2 (10:23→21:25)
[2021-09-21] MEDS: METOPROLOL TARTRATE 25 MG TABLET PO SCH ×2 (10:23→21:26)
[2021-09-21] MEDS: DOCUSATE SODIUM 100 MG CAPSULE PO SCH ×2 (10:23→21:26)
[2021-09-21] MEDS: BUDESONIDE/FORMOTEROL 160-4.5 INHALER 6 GM INH SCH ×2 (10:24→21:31)
[2021-09-21] MEDS: LORazepam 1 MG TABLET PO SCH ×2 (10:28→21:26)
[2021-09-21] MEDS: FLUCONAZOLE 200 MG TABLET PO SCH (12:13)
[2021-09-22] MEDS: ALBUTEROL/IPRATROPIUM 3 ML NEB RESP TX SCH ×6 (02:39→23:26)
[2021-09-22] MEDS: INSULIN REGULAR 100 UNIT/ML SUBCUT SCH ×4 (08:28→21:24)
[2021-09-22] MEDS: DOCUSATE SODIUM 100 MG CAPSULE PO SCH ×2 (10:03→21:18)
[2021-09-22] MEDS: ASCORBIC ACID 500 MG TABLET PO SCH ×2 (10:03→21:17)
[2021-09-22] MEDS: predniSONE 10 MG TABLET PO SCH (10:03)
[2021-09-22] MEDS: METOPROLOL TARTRATE 25 MG TABLET PO SCH ×2 (10:03→21:17)
[2021-09-22] MEDS: LORazepam 1 MG TABLET PO SCH ×2 (10:04→21:17)
[2021-09-22] MEDS: PANTOPRAZOLE 40 MG TABLET PO SCH ×2 (10:04→21:17)
[2021-09-22] MEDS: MYLANTA/LIDO VISC/NYST 180 ML BOTTLE SWISH/SWAL SCH ×4 (10:04→21:23)
[2021-09-22] MEDS: APIXABAN 5 MG TABLET PO SCH ×2 (10:04→21:17)
[2021-09-22] MEDS: ASPIRIN EC 81 MG TABLET PO SCH (10:04)
[2021-09-22] MEDS: IBUPROFEN 100 MG/5 ML UDCUP PO PRN ×2 (10:11→19:01)
[2021-09-22] MEDS: BUDESONIDE/FORMOTEROL 160-4.5 INHALER 6 GM INH SCH ×2 (10:11→21:24)
[2021-09-22] MEDS: INSULIN GLARGINE 100 UNIT/ML SUBCUT SCH (10:13)
[2021-09-22] MEDS ORDERED: LACTULOSE 20 GM/30 ML UDCUP PO ONE (12:35)
[2021-09-22] MEDS: FLUCONAZOLE INJ 200 MG/100 ML PREMIX IV SCH (15:47)
[2021-09-22] MEDS ORDERED: TAMSULOSIN 0.4 MG CAPSULE PO ONE (16:33)
[2021-09-22] MEDS: FINASTERIDE 5 MG TABLET PO SCH (21:17)
[2021-09-22] MEDS: POLYETHYLENE GLYCOL POWDER 17 GM PACK PO SCH (21:18)
[2021-09-23] MEDS: ALBUTEROL/IPRATROPIUM 3 ML NEB RESP TX SCH ×6 (03:19→23:10)
[2021-09-23 05:55] LABS: Basophils % 0.2 % (0.0-0.8); Eosinophils # 0.1 10*3/uL (0.0-0.87); Eosinophils % 0.8 % (0.00-10.9); Hematocrit 46.1 VOL% (42.0-52.0); Hemoglobin 14.5 GM/DL (14.0-18.0); Immature Granulocytes % 0.7 %; Immature Granulocytes Absolute 0.08 #; Lymphocytes # 1.5 10*3/uL (1.4-4.0); Lymphocytes % 12.6 % (21.2-54.2); Mean Corpuscular HGB Conc 31.5 GM/DL (32-36); Mean Corpuscular Volume 92.2 FL (87-102); Mean Platelet Volume 11.8 FL (9.6-12.0); Monocytes % 5.7 % (1.7-12.7); Platelet Count 160 T/CUMM (130-400); Red Cell Distribution Width 13.9 % (9.3-17.3); White Blood Count 11.5 T/CUMM (4-12)
[2021-09-23 06:46] LABS: Calcium 8.6 MG/DL (8.5-10.1); Potassium 5.4 MMOL/L (3.5-5.1)
[2021-09-23] MEDS: INSULIN REGULAR 100 UNIT/ML SUBCUT SCH ×4 (07:26→20:31)
[2021-09-23] MEDS: INSULIN GLARGINE 100 UNIT/ML SUBCUT SCH (08:50)
[2021-09-23] MEDS: LINACLOTIDE 145 MCG CAPSULE PO SCH (08:51)
[2021-09-23] MEDS: MYLANTA/LIDO VISC/NYST 180 ML BOTTLE SWISH/SWAL SCH ×4 (08:51→21:53)
[2021-09-23] MEDS: METOPROLOL TARTRATE 25 MG TABLET PO SCH ×2 (08:52→21:51)
[2021-09-23] MEDS: DOCUSATE SODIUM 100 MG CAPSULE PO SCH ×2 (08:52→21:52)
[2021-09-23] MEDS: POLYETHYLENE GLYCOL POWDER 17 GM PACK PO SCH ×2 (08:52→21:51)
[2021-09-23] MEDS: LORazepam 1 MG TABLET PO SCH ×2 (08:52→21:51)
[2021-09-23] MEDS: ASPIRIN EC 81 MG TABLET PO SCH (08:52)
[2021-09-23] MEDS: APIXABAN 5 MG TABLET PO SCH ×2 (08:52→21:52)
[2021-09-23] MEDS: PANTOPRAZOLE 40 MG TABLET PO SCH ×2 (08:52→21:52)
[2021-09-23] MEDS: BUDESONIDE/FORMOTEROL 160-4.5 INHALER 6 GM INH SCH ×2 (08:53→21:52)
[2021-09-23] MEDS: ASCORBIC ACID 500 MG TABLET PO SCH ×2 (08:53→21:51)
[2021-09-23] MEDS ORDERED: POLYETHYLENE GLYCOL POWDER 17 GM PACK PO SCH (09:00)
[2021-09-23] MEDS: IBUPROFEN 100 MG/5 ML UDCUP PO PRN (09:01)
[2021-09-23] MEDS: FLUCONAZOLE INJ 200 MG/100 ML PREMIX IV SCH (16:53)
[2021-09-23] MEDS: SODIUM ZIRCONIUM CYCLOSILICATE 10 GM PACK PO SCH (16:54)
[2021-09-23] MEDS ORDERED: TAMSULOSIN 0.4 MG CAPSULE PO SCH (21:00)
[2021-09-23] MEDS: FINASTERIDE 5 MG TABLET PO SCH (21:51)
[2021-09-23] MEDS: TAMSULOSIN 0.4 MG CAPSULE PO SCH (21:52)
[2021-09-24] MEDS: ALBUTEROL/IPRATROPIUM 3 ML NEB RESP TX SCH ×6 (02:10→23:14)
[2021-09-24 05:31] LABS: Basophils % 0.2 % (0.0-0.8); Eosinophils # 0.1 10*3/uL (0.0-0.87); Eosinophils % 1.1 % (0.00-10.9); Hematocrit 39.6 VOL% (42.0-52.0); Immature Granulocytes % 0.5 %; Immature Granulocytes Absolute 0.05 #; Lymphocytes % 9.9 % (21.2-54.2); Mean Corpuscular HGB Conc 32.8 GM/DL (32-36); Mean Platelet Volume 11.2 FL (9.6-12.0); Neutrophils % 83.3 % (38.7-73.9); Platelet Count 189 T/CUMM (130-400); Red Cell Distribution Width 13.9 % (9.3-17.3); White Blood Count 9.7 T/CUMM (4-12)
[2021-09-24 05:47] LABS: Calcium 8.2 MG/DL (8.5-10.1); Osmolality,Calculated 274.1 MOS/KG (273-304); Potassium 4.3 MMOL/L (3.5-5.1)
[2021-09-24] MEDS: LORazepam 1 MG TABLET PO SCH ×2 (09:16→21:13)
[2021-09-24] MEDS: DOCUSATE SODIUM 100 MG CAPSULE PO SCH ×2 (09:16→21:14)
[2021-09-24] MEDS: POLYETHYLENE GLYCOL POWDER 17 GM PACK PO SCH ×2 (09:16→21:13)
[2021-09-24] MEDS: SODIUM ZIRCONIUM CYCLOSILICATE 10 GM PACK PO SCH (09:16)
[2021-09-24] MEDS: APIXABAN 5 MG TABLET PO SCH ×2 (09:17→21:14)
[2021-09-24] MEDS: ASCORBIC ACID 500 MG TABLET PO SCH ×2 (09:17→21:14)
[2021-09-24] MEDS: PANTOPRAZOLE 40 MG TABLET PO SCH ×2 (09:17→21:15)
[2021-09-24] MEDS: ASPIRIN EC 81 MG TABLET PO SCH (09:17)
[2021-09-24] MEDS: INSULIN GLARGINE 100 UNIT/ML SUBCUT SCH (09:18)
[2021-09-24] MEDS: LINACLOTIDE 145 MCG CAPSULE PO SCH (09:18)
[2021-09-24] MEDS: MYLANTA/LIDO VISC/NYST 180 ML BOTTLE SWISH/SWAL SCH ×4 (09:19→21:16)
[2021-09-24] MEDS: INSULIN REGULAR 100 UNIT/ML SUBCUT SCH ×4 (09:19→21:15)
[2021-09-24] MEDS: BUDESONIDE/FORMOTEROL 160-4.5 INHALER 6 GM INH SCH ×2 (09:19→21:16)
[2021-09-24] MEDS: METOPROLOL TARTRATE 25 MG TABLET PO SCH ×2 (09:20→21:16)
[2021-09-24] MEDS: FLUCONAZOLE INJ 200 MG/100 ML PREMIX IV SCH (14:35)
[2021-09-24] MEDS: CHOLECALCIFEROL 1,000 UNIT TABLET PO SCH (16:09)
[2021-09-24] MEDS: SUCRALFATE 1 GM/10 ML UDCUP PO SCH ×2 (16:10→21:15)
[2021-09-24] MEDS: SODIUM CHLORIDE 0.9% 1,000 ML IV SCH (16:19)
[2021-09-24] MEDS ORDERED: SODIUM PHOSPHATE ENEMA 133 ML BOTTLE RECTAL ONE (17:00)
[2021-09-24] MEDS: BACILLUS COAGULANS CAPLET PO SCH (21:14)
[2021-09-24] MEDS: TAMSULOSIN 0.4 MG CAPSULE PO SCH (21:15)
[2021-09-24] MEDS: FINASTERIDE 5 MG TABLET PO SCH (21:15)
[2021-09-24] MEDS: IBUPROFEN 100 MG/5 ML UDCUP PO PRN (21:23)
[2021-09-25] MEDS: ALBUTEROL/IPRATROPIUM 3 ML NEB RESP TX SCH ×6 (03:39→23:08)
[2021-09-25] MEDS: SODIUM CHLORIDE 0.9% 1,000 ML IV SCH ×2 (04:17→17:41)
[2021-09-25 05:33] LABS: Basophils % 0.2 % (0.0-0.8); Eosinophils # 0.1 10*3/uL (0.0-0.87); Eosinophils % 1.2 % (0.00-10.9); Hematocrit 37.7 VOL% (42.0-52.0); Hemoglobin 11.9 GM/DL (14.0-18.0); Immature Granulocytes % 0.5 %; Immature Granulocytes Absolute 0.04 #; Lymphocytes # 1.1 10*3/uL (1.4-4.0); Mean Corpuscular HGB Conc 31.6 GM/DL (32-36); Mean Corpuscular Volume 91.3 FL (87-102); Mean Platelet Volume 11.4 FL (9.6-12.0); Monocytes % 3.6 % (1.7-12.7); Neutrophils % 82.5 % (38.7-73.9); Platelet Count 170 T/CUMM (130-400); Red Blood Count 4.13 MC/CUMM (3.8-5.5); Red Cell Distribution Width 13.9 % (9.3-17.3); White Blood Count 8.8 T/CUMM (4-12)
[2021-09-25 06:01] LABS: Calcium 8.2 MG/DL (8.5-10.1)
[2021-09-25] MEDS: LINACLOTIDE 145 MCG CAPSULE PO SCH (09:01)
[2021-09-25] MEDS: IBUPROFEN 100 MG/5 ML UDCUP PO PRN ×2 (09:01→20:51)
[2021-09-25] MEDS: APIXABAN 5 MG TABLET PO SCH ×2 (09:01→21:16)
[2021-09-25] MEDS: POLYETHYLENE GLYCOL POWDER 17 GM PACK PO SCH ×2 (09:02→21:18)
[2021-09-25] MEDS: SUCRALFATE 1 GM/10 ML UDCUP PO SCH ×2 (09:02→12:11)
[2021-09-25] MEDS: DOCUSATE SODIUM 100 MG CAPSULE PO SCH ×2 (09:02→21:16)
[2021-09-25] MEDS: SODIUM ZIRCONIUM CYCLOSILICATE 10 GM PACK PO SCH (09:02)
[2021-09-25] MEDS: ASPIRIN EC 81 MG TABLET PO SCH (09:03)
[2021-09-25] MEDS: ASCORBIC ACID 500 MG TABLET PO SCH ×2 (09:03→21:16)
[2021-09-25] MEDS: BACILLUS COAGULANS CAPLET PO SCH ×2 (09:03→21:17)
[2021-09-25] MEDS: PANTOPRAZOLE 40 MG TABLET PO SCH ×2 (09:03→21:17)
[2021-09-25] MEDS: CHOLECALCIFEROL 1,000 UNIT TABLET PO SCH (09:03)
[2021-09-25] MEDS: INSULIN REGULAR 100 UNIT/ML SUBCUT SCH ×4 (09:03→21:18)
[2021-09-25] MEDS: LORazepam 1 MG TABLET PO SCH ×2 (09:04→21:16)
[2021-09-25] MEDS: MYLANTA/LIDO VISC/NYST 180 ML BOTTLE SWISH/SWAL SCH ×4 (09:04→21:23)
[2021-09-25] MEDS: METOPROLOL TARTRATE 25 MG TABLET PO SCH ×2 (09:04→21:18)
[2021-09-25] MEDS: BUDESONIDE/FORMOTEROL 160-4.5 INHALER 6 GM INH SCH ×2 (09:13→21:19)
[2021-09-25] MEDS: INSULIN GLARGINE 100 UNIT/ML SUBCUT SCH (09:13)
[2021-09-25] MEDS: FLUCONAZOLE INJ 200 MG/100 ML PREMIX IV SCH (14:47)
[2021-09-25] MEDS: TAMSULOSIN 0.4 MG CAPSULE PO SCH (21:17)
[2021-09-25] MEDS: FINASTERIDE 5 MG TABLET PO SCH (21:17)
[2021-09-26] MEDS: ALBUTEROL/IPRATROPIUM 3 ML NEB RESP TX SCH ×6 (03:19→23:00)
[2021-09-26 06:15] LABS: Basophils % 0.1 % (0.0-0.8); Eosinophils # 0.1 10*3/uL (0.0-0.87); Hematocrit 36.2 VOL% (42.0-52.0); Hemoglobin 11.5 GM/DL (14.0-18.0); Immature Granulocytes % 0.3 %; Immature Granulocytes Absolute 0.02 #; Lymphocytes # 0.9 10*3/uL (1.4-4.0); Lymphocytes % 12.8 % (21.2-54.2); Mean Corpuscular HGB Conc 31.8 GM/DL (32-36); Mean Corpuscular Volume 92.6 FL (87-102); Monocytes % 4.5 % (1.7-12.7); Neutrophils % 80.3 % (38.7-73.9); Platelet Count 150 T/CUMM (130-400); Red Blood Count 3.91 MC/CUMM (3.8-5.5); White Blood Count 6.9 T/CUMM (4-12)
[2021-09-26] MEDS: SODIUM CHLORIDE 0.9% 1,000 ML IV SCH ×2 (06:26→22:34)
[2021-09-26 06:47] LABS: Calcium 7.8 MG/DL (8.5-10.1); Osmolality,Calculated 282.5 MOS/KG (273-304)
[2021-09-26] MEDS: INSULIN REGULAR 100 UNIT/ML SUBCUT SCH ×4 (08:33→22:43)
[2021-09-26] MEDS ORDERED: MIDODRINE 2.5 MG TABLET PO SCH (09:00)
[2021-09-26] MEDS: LINACLOTIDE 145 MCG CAPSULE PO SCH (10:53)
[2021-09-26] MEDS: PANTOPRAZOLE 40 MG TABLET PO SCH ×2 (10:54→22:33)
[2021-09-26] MEDS: METOPROLOL TARTRATE 25 MG TABLET PO SCH ×2 (10:54→22:34)
[2021-09-26] MEDS: POLYETHYLENE GLYCOL POWDER 17 GM PACK PO SCH (10:55)
[2021-09-26] MEDS: SODIUM ZIRCONIUM CYCLOSILICATE 10 GM PACK PO SCH (10:55)
[2021-09-26] MEDS: ASPIRIN EC 81 MG TABLET PO SCH (10:56)
[2021-09-26] MEDS: ASCORBIC ACID 500 MG TABLET PO SCH ×2 (10:56→22:33)
[2021-09-26] MEDS: carvediloL 6.25 MG TABLET PO SCH ×2 (10:56→22:32)
[2021-09-26] MEDS: DOCUSATE SODIUM 100 MG CAPSULE PO SCH ×2 (10:56→22:33)
[2021-09-26] MEDS: LORazepam 1 MG TABLET PO SCH (10:57)
[2021-09-26] MEDS: INSULIN GLARGINE 100 UNIT/ML SUBCUT SCH (10:57)
[2021-09-26] MEDS: BACILLUS COAGULANS CAPLET PO SCH ×2 (10:57→22:32)
[2021-09-26] MEDS: BUDESONIDE/FORMOTEROL 160-4.5 INHALER 6 GM INH SCH ×2 (10:57→22:34)
[2021-09-26] MEDS: APIXABAN 5 MG TABLET PO SCH ×2 (10:58→22:33)
[2021-09-26] MEDS: CHOLECALCIFEROL 1,000 UNIT TABLET PO SCH (10:59)
[2021-09-26] MEDS: MYLANTA/LIDO VISC/NYST 180 ML BOTTLE SWISH/SWAL SCH ×3 (11:55→22:34)
[2021-09-26] MEDS ORDERED: ERGOCALCIFEROL 50,000 UNIT CAPSULE PO ONE (15:00)
[2021-09-26] MEDS: FLUCONAZOLE INJ 200 MG/100 ML PREMIX IV SCH (16:00)
[2021-09-26] MEDS: TAMSULOSIN 0.4 MG CAPSULE PO SCH (22:32)
[2021-09-26] MEDS: ACETAMINOPHEN 500 MG TABLET PO PRN (22:33)
[2021-09-26] MEDS: FINASTERIDE 5 MG TABLET PO SCH (22:33)
[2021-09-27] MEDS: ALBUTEROL/IPRATROPIUM 3 ML NEB RESP TX SCH ×5 (03:37→19:32)
[2021-09-27 06:03] LABS: Basophils % 0.3 % (0.0-0.8); Eosinophils # 0.1 10*3/uL (0.0-0.87); Eosinophils % 1.7 % (0.00-10.9); Hematocrit 33.7 VOL% (42.0-52.0); Hemoglobin 10.6 GM/DL (14.0-18.0); Immature Granulocytes % 0.6 %; Immature Granulocytes Absolute 0.04 #; Lymphocytes # 0.9 10*3/uL (1.4-4.0); Lymphocytes % 13.4 % (21.2-54.2); Mean Corpuscular HGB Conc 31.5 GM/DL (32-36); Mean Corpuscular Volume 93.1 FL (87-102); Mean Platelet Volume 11.4 FL (9.6-12.0); Monocytes % 5.2 % (1.7-12.7); Neutrophils % 78.8 % (38.7-73.9); Platelet Count 154 T/CUMM (130-400); Red Blood Count 3.62 MC/CUMM (3.8-5.5); Red Cell Distribution Width 14.1 % (9.3-17.3)
[2021-09-27 06:28] LABS: Calcium 7.7 MG/DL (8.5-10.1); Osmolality,Calculated 274.5 MOS/KG (273-304); Potassium 3.7 MMOL/L (3.5-5.1)
[2021-09-27] MEDS: MYLANTA/LIDO VISC/NYST 180 ML BOTTLE SWISH/SWAL SCH ×4 (07:31→21:09)
[2021-09-27] MEDS: INSULIN REGULAR 100 UNIT/ML SUBCUT SCH ×4 (07:31→21:09)
[2021-09-27] MEDS: METOPROLOL TARTRATE 25 MG TABLET PO SCH ×3 (09:05→21:09)
[2021-09-27] MEDS: INSULIN GLARGINE 100 UNIT/ML SUBCUT SCH (09:05)
[2021-09-27] MEDS: SODIUM ZIRCONIUM CYCLOSILICATE 10 GM PACK PO SCH (09:06)
[2021-09-27] MEDS: carvediloL 6.25 MG TABLET PO SCH ×2 (09:07→20:57)
[2021-09-27] MEDS: LINACLOTIDE 145 MCG CAPSULE PO SCH (09:07)
[2021-09-27] MEDS: DOCUSATE SODIUM 100 MG CAPSULE PO SCH ×2 (09:07→20:57)
[2021-09-27] MEDS: PANTOPRAZOLE 40 MG TABLET PO SCH ×2 (09:08→20:57)
[2021-09-27] MEDS: APIXABAN 5 MG TABLET PO SCH ×2 (09:08→22:39)
[2021-09-27] MEDS: ASCORBIC ACID 500 MG TABLET PO SCH ×2 (09:08→20:57)
[2021-09-27] MEDS: BACILLUS COAGULANS CAPLET PO SCH ×2 (09:08→20:57)
[2021-09-27] MEDS: CHOLECALCIFEROL 1,000 UNIT TABLET PO SCH (09:08)
[2021-09-27] MEDS: ASPIRIN EC 81 MG TABLET PO SCH (09:08)
[2021-09-27] MEDS: BUDESONIDE/FORMOTEROL 160-4.5 INHALER 6 GM INH SCH ×2 (09:11→21:01)
[2021-09-27] MEDS ORDERED: ERGOCALCIFEROL 50,000 UNIT CAPSULE PO ONE (09:21)
[2021-09-27] MEDS: SODIUM CHLORIDE 0.9% 1,000 ML IV SCH (11:59)
[2021-09-27] MEDS: FLUCONAZOLE INJ 200 MG/100 ML PREMIX IV SCH (15:29)
[2021-09-27] MEDS ORDERED: FUROSEMIDE 40 MG/4 ML VIAL IV ONE (16:22)
[2021-09-27] MEDS: ACETAMINOPHEN 500 MG TABLET PO PRN (20:57)
[2021-09-27] MEDS: TAMSULOSIN 0.4 MG CAPSULE PO SCH (20:57)
[2021-09-27] MEDS: FINASTERIDE 5 MG TABLET PO SCH (22:39)
[2021-09-28] MEDS: ALBUTEROL/IPRATROPIUM 3 ML NEB RESP TX SCH ×7 (03:15→23:40)
[2021-09-28 06:50] LABS: Basophils % 0.2 % (0.0-0.8); Eosinophils # 0.1 10*3/uL (0.0-0.87); Hematocrit 35.2 VOL% (42.0-52.0); Immature Granulocytes % 0.4 %; Immature Granulocytes Absolute 0.04 #; Lymphocytes # 1.2 10*3/uL (1.4-4.0); Lymphocytes % 11.1 % (21.2-54.2); Mean Corpuscular HGB Conc 31.3 GM/DL (32-36); Mean Corpuscular Volume 92.6 FL (87-102); Mean Platelet Volume 11.1 FL (9.6-12.0); Monocytes % 5.7 % (1.7-12.7); Neutrophils % 81.6 % (38.7-73.9); Platelet Count 135 T/CUMM (130-400); White Blood Count 10.6 T/CUMM (4-12)
[2021-09-28 07:10] LABS: Calcium 8.1 MG/DL (8.5-10.1); Osmolality,Calculated 277.5 MOS/KG (273-304); Potassium 3.4 MMOL/L (3.5-5.1)
[2021-09-28] MEDS: LINACLOTIDE 145 MCG CAPSULE PO SCH (07:14)
[2021-09-28 07:18] LABS: Band Neutrophils 2 % (0-10); Lymphocytes 5 % (20-55); Segmented Neutrophils 88 % (50-85); Total Cells Counted 100
[2021-09-28 07:19] LABS: Hypochromia 1+; Microcytosis 1+
[2021-09-28 07:20] LABS: Platelet Estimate Normal
[2021-09-28] MEDS: INSULIN REGULAR 100 UNIT/ML SUBCUT SCH ×4 (07:49→21:47)
[2021-09-28] MEDS: MYLANTA/LIDO VISC/NYST 180 ML BOTTLE SWISH/SWAL SCH ×5 (08:15→20:57)
[2021-09-28] MEDS: DOCUSATE SODIUM 100 MG CAPSULE PO SCH ×2 (09:42→20:57)
[2021-09-28] MEDS: ASPIRIN EC 81 MG TABLET PO SCH (09:43)
[2021-09-28] MEDS: CHOLECALCIFEROL 1,000 UNIT TABLET PO SCH (09:43)
[2021-09-28] MEDS: ACETAMINOPHEN 500 MG TABLET PO PRN (09:43)
[2021-09-28] MEDS: ASCORBIC ACID 500 MG TABLET PO SCH ×2 (09:43→20:56)
[2021-09-28] MEDS: SODIUM ZIRCONIUM CYCLOSILICATE 10 GM PACK PO SCH (09:44)
[2021-09-28] MEDS: carvediloL 6.25 MG TABLET PO SCH ×2 (09:45→20:57)
[2021-09-28] MEDS: BACILLUS COAGULANS CAPLET PO SCH ×2 (09:45→20:57)
[2021-09-28] MEDS: INSULIN GLARGINE 100 UNIT/ML SUBCUT SCH (09:45)
[2021-09-28] MEDS: PANTOPRAZOLE 40 MG TABLET PO SCH ×2 (09:45→20:57)
[2021-09-28] MEDS: APIXABAN 5 MG TABLET PO SCH ×2 (09:45→20:56)
[2021-09-28] MEDS: FUROSEMIDE 20 MG TABLET PO SCH (09:46)
[2021-09-28] MEDS: BUDESONIDE/FORMOTEROL 160-4.5 INHALER 6 GM INH SCH ×2 (09:46→20:58)
[2021-09-28] MEDS: METOPROLOL TARTRATE 25 MG TABLET PO SCH ×2 (09:51→20:57)
[2021-09-28] MEDS ORDERED: POTASSIUM CHLORIDE 20 MEQ TABLET PO ONE (12:58)
[2021-09-28] MEDS: FLUCONAZOLE INJ 200 MG/100 ML PREMIX IV SCH (14:16)
[2021-09-28] MEDS: FINASTERIDE 5 MG TABLET PO SCH (20:56)
[2021-09-28] MEDS: TAMSULOSIN 0.4 MG CAPSULE PO SCH (20:56)
[2021-09-28] MEDS: LORazepam 1 MG TABLET PO SCH (20:57)
[2021-09-29] MEDS: ALBUTEROL/IPRATROPIUM 3 ML NEB RESP TX SCH ×6 (03:39→23:24)
[2021-09-29] MEDS: CHOLECALCIFEROL 1,000 UNIT TABLET PO SCH (08:02)
[2021-09-29] MEDS: BACILLUS COAGULANS CAPLET PO SCH ×2 (08:03→21:57)
[2021-09-29] MEDS: PANTOPRAZOLE 40 MG TABLET PO SCH ×2 (08:03→21:57)
[2021-09-29] MEDS: METOPROLOL TARTRATE 25 MG TABLET PO SCH (08:03)
[2021-09-29] MEDS: ASCORBIC ACID 500 MG TABLET PO SCH ×2 (08:03→21:57)
[2021-09-29] MEDS: ASPIRIN EC 81 MG TABLET PO SCH (08:03)
[2021-09-29] MEDS: carvediloL 6.25 MG TABLET PO SCH ×2 (08:03→21:57)
[2021-09-29] MEDS: MYLANTA/LIDO VISC/NYST 180 ML BOTTLE SWISH/SWAL SCH ×4 (08:03→22:03)
[2021-09-29] MEDS: APIXABAN 5 MG TABLET PO SCH ×2 (08:03→21:57)
[2021-09-29] MEDS: LORazepam 1 MG TABLET PO SCH ×2 (08:03→21:58)
[2021-09-29] MEDS: INSULIN GLARGINE 100 UNIT/ML SUBCUT SCH (08:04)
[2021-09-29] MEDS: BUDESONIDE/FORMOTEROL 160-4.5 INHALER 6 GM INH SCH ×2 (08:04→22:01)
[2021-09-29] MEDS: DOCUSATE SODIUM 100 MG CAPSULE PO SCH ×2 (09:30→21:58)
[2021-09-29] MEDS: LINACLOTIDE 145 MCG CAPSULE PO SCH (09:30)
[2021-09-29] MEDS: INSULIN REGULAR 100 UNIT/ML SUBCUT SCH ×4 (09:30→22:00)
[2021-09-29] MEDS: SODIUM ZIRCONIUM CYCLOSILICATE 10 GM PACK PO SCH (09:30)
[2021-09-29] MEDS: FUROSEMIDE 20 MG TABLET PO SCH (09:30)
[2021-09-29] MEDS: POLYETHYLENE GLYCOL POWDER 17 GM PACK PO SCH (09:30)
[2021-09-29] MEDS ORDERED: SODIUM CHLORIDE 0.9% 500 ML IV ONE (11:38)
[2021-09-29] MEDS: FLUCONAZOLE INJ 200 MG/100 ML PREMIX IV SCH (14:36)
[2021-09-29] MEDS: ACETAMINOPHEN 500 MG TABLET PO PRN (16:43)
[2021-09-29] MEDS: FINASTERIDE 5 MG TABLET PO SCH (21:57)
[2021-09-29] MEDS: TAMSULOSIN 0.4 MG CAPSULE PO SCH (21:57)
[2021-09-30] MEDS: ALBUTEROL/IPRATROPIUM 3 ML NEB RESP TX SCH ×6 (03:21→23:25)
[2021-09-30 05:09] LABS: Basophils % 0.1 % (0.0-0.8); Eosinophils # 0.2 10*3/uL (0.0-0.87); Hematocrit 32.6 VOL% (42.0-52.0); Hemoglobin 10.4 GM/DL (14.0-18.0); Immature Granulocytes % 0.4 %; Immature Granulocytes Absolute 0.03 #; Lymphocytes # 1.4 10*3/uL (1.4-4.0); Lymphocytes % 17.7 % (21.2-54.2); Mean Corpuscular HGB Conc 31.9 GM/DL (32-36); Mean Corpuscular Volume 90.8 FL (87-102); Mean Platelet Volume 10.9 FL (9.6-12.0); Monocytes % 9.2 % (1.7-12.7); Neutrophils % 70.6 % (38.7-73.9); Platelet Count 137 T/CUMM (130-400); Red Blood Count 3.59 MC/CUMM (3.8-5.5); Red Cell Distribution Width 13.8 % (9.3-17.3); White Blood Count 7.9 T/CUMM (4-12)
[2021-09-30 05:31] LABS: Calcium 8.2 MG/DL (8.5-10.1); Osmolality,Calculated 268.2 MOS/KG (273-304); Potassium 3.7 MMOL/L (3.5-5.1)
[2021-09-30] MEDS: INSULIN REGULAR 100 UNIT/ML SUBCUT SCH ×4 (07:30→20:52)
[2021-09-30] MEDS: INSULIN GLARGINE 100 UNIT/ML SUBCUT SCH (08:44)
[2021-09-30] MEDS: BUDESONIDE/FORMOTEROL 160-4.5 INHALER 6 GM INH SCH (08:44)
[2021-09-30] MEDS: MYLANTA/LIDO VISC/NYST 180 ML BOTTLE SWISH/SWAL SCH ×3 (08:44→16:45)
[2021-09-30] MEDS: APIXABAN 5 MG TABLET PO SCH ×2 (09:35→20:49)
[2021-09-30] MEDS: PANTOPRAZOLE 40 MG TABLET PO SCH ×2 (09:35→20:49)
[2021-09-30] MEDS: LORazepam 1 MG TABLET PO SCH ×2 (09:35→20:49)
[2021-09-30] MEDS: ASPIRIN EC 81 MG TABLET PO SCH (09:35)
[2021-09-30] MEDS: ASCORBIC ACID 500 MG TABLET PO SCH ×2 (09:35→20:49)
[2021-09-30] MEDS: BACILLUS COAGULANS CAPLET PO SCH ×2 (09:35→20:48)
[2021-09-30] MEDS: ACETAMINOPHEN 500 MG TABLET PO PRN ×2 (10:15→18:35)
[2021-09-30] MEDS: DOCUSATE SODIUM 100 MG CAPSULE PO SCH ×2 (10:16→20:49)
[2021-09-30] MEDS: carvediloL 6.25 MG TABLET PO SCH (10:16)
[2021-09-30] MEDS: FUROSEMIDE 20 MG TABLET PO SCH (10:17)
[2021-09-30] MEDS: SODIUM ZIRCONIUM CYCLOSILICATE 10 GM PACK PO SCH (10:17)
[2021-09-30] MEDS: POLYETHYLENE GLYCOL POWDER 17 GM PACK PO SCH (10:17)
[2021-09-30] MEDS: CHOLECALCIFEROL 1,000 UNIT TABLET PO SCH (10:18)
[2021-09-30] MEDS: FLUCONAZOLE INJ 200 MG/100 ML PREMIX IV SCH (14:20)
[2021-09-30] MEDS: carvediloL 3.125 MG TABLET PO SCH (16:46)
[2021-09-30] MEDS: FINASTERIDE 5 MG TABLET PO SCH (20:49)
[2021-09-30] MEDS: TAMSULOSIN 0.4 MG CAPSULE PO SCH (20:49)
[2021-09-30] MEDS: SODIUM CHLORIDE 0.45% 1,000 ML IV SCH (21:00)
[2021-09-30] MEDS ORDERED: cefTRIAXone 2,000 MG in SODIUM CHLORIDE 0.9% 100 ML IV SCH (21:00)
[2021-10-01] MEDS: MYLANTA/LIDO VISC/NYST 180 ML BOTTLE SWISH/SWAL SCH ×5 (01:31→21:38)
[2021-10-01] MEDS: ALBUTEROL/IPRATROPIUM 3 ML NEB RESP TX SCH ×6 (02:58→23:40)
[2021-10-01] MEDS: ACETAMINOPHEN 500 MG TABLET PO PRN ×3 (03:14→18:08)
[2021-10-01 04:45] LABS: Mucus,Urine Many /LPF (Occasional); RBC,Urine 51606 /HPF (0-4)
[2021-10-01 04:47] LABS: Urine Appearance Turbid (Clear)
[2021-10-01 04:49] LABS: Bilirubin,Urine Negative (Negative); Glucose,Urine (UA) Negative (Negative); Ketones,Urine Negative (Negative); Nitrite,Urine Negative (Negative); Protein,Urine >500 MG/DL; Urine Specific Gravity 1.025 (1.001-1.035)
[2021-10-01 04:50] LABS: Blood, Urine Moderate mg/dL (Negative); Urine Urobilinogen 0.2 EU/DL (<2.0)
[2021-10-01 04:51] LABS: Urine Color Brown (Yellow)
[2021-10-01 05:36] LABS: Basophils % 0.1 % (0.0-0.8); Eosinophils # 0.1 10*3/uL (0.0-0.87); Eosinophils % 1.5 % (0.00-10.9); Hemoglobin 10.7 GM/DL (14.0-18.0); Immature Granulocytes % 0.9 %; Immature Granulocytes Absolute 0.07 #; Lymphocytes # 1.1 10*3/uL (1.4-4.0); Lymphocytes % 13.7 % (21.2-54.2); Mean Corpuscular HGB Conc 32.4 GM/DL (32-36); Mean Corpuscular Volume 90.2 FL (87-102); Mean Platelet Volume 11.1 FL (9.6-12.0); Monocytes % 9.9 % (1.7-12.7); Neutrophils % 73.9 % (38.7-73.9); Platelet Count 151 T/CUMM (130-400); Red Blood Count 3.66 MC/CUMM (3.8-5.5); Red Cell Distribution Width 13.7 % (9.3-17.3); White Blood Count 7.8 T/CUMM (4-12)
[2021-10-01 05:54] LABS: Osmolality,Calculated 275.8 MOS/KG (273-304)
[2021-10-01 05:58] LABS: Hypochromia 1+; Lymphocytes 12 % (20-55); Microcytosis 1+; Segmented Neutrophils 82 % (50-85); Total Cells Counted 100
[2021-10-01 05:59] LABS: Platelet Estimate Adequate
[2021-10-01] MEDS: INSULIN REGULAR 100 UNIT/ML SUBCUT SCH ×4 (10:43→21:38)
[2021-10-01] MEDS: POLYETHYLENE GLYCOL POWDER 17 GM PACK PO SCH (10:55)
[2021-10-01] MEDS: SODIUM ZIRCONIUM CYCLOSILICATE 10 GM PACK PO SCH (10:58)
[2021-10-01] MEDS: ASCORBIC ACID 500 MG TABLET PO SCH ×2 (10:59→21:42)
[2021-10-01] MEDS: LORazepam 1 MG TABLET PO SCH ×2 (10:59→21:36)
[2021-10-01] MEDS: DOCUSATE SODIUM 100 MG CAPSULE PO SCH ×2 (10:59→21:36)
[2021-10-01] MEDS: ASPIRIN EC 81 MG TABLET PO SCH (11:00)
[2021-10-01] MEDS: APIXABAN 5 MG TABLET PO SCH (11:00)
[2021-10-01] MEDS ORDERED: VANCOMYCIN INJ 2,250 MG in SODIUM CHLORIDE 0.9% 500 ML IV ONE (11:00)
[2021-10-01] MEDS: FUROSEMIDE 20 MG TABLET PO SCH (11:00)
[2021-10-01] MEDS: BACILLUS COAGULANS CAPLET PO SCH ×2 (11:00→21:37)
[2021-10-01] MEDS: carvediloL 3.125 MG TABLET PO SCH ×2 (11:00→18:57)
[2021-10-01] MEDS: PANTOPRAZOLE 40 MG TABLET PO SCH ×2 (11:03→21:36)
[2021-10-01] MEDS: CHOLECALCIFEROL 1,000 UNIT TABLET PO SCH (11:03)
[2021-10-01] MEDS: BUDESONIDE/FORMOTEROL 160-4.5 INHALER 6 GM INH SCH ×3 (11:04→21:37)
[2021-10-01] MEDS: INSULIN GLARGINE 100 UNIT/ML SUBCUT SCH (11:05)
[2021-10-01] MEDS: FLUCONAZOLE INJ 200 MG/100 ML PREMIX IV SCH (17:16)
[2021-10-01] MEDS: TAMSULOSIN 0.4 MG CAPSULE PO SCH (21:37)
[2021-10-01] MEDS: FINASTERIDE 5 MG TABLET PO SCH (21:37)
[2021-10-02] MEDS ORDERED: VANCOMYCIN INJ 1,250 MG in SODIUM CHLORIDE 0.9% 250 ML IV SCH (03:00)
[2021-10-02] MEDS: ALBUTEROL/IPRATROPIUM 3 ML NEB RESP TX SCH ×4 (03:32→20:22)
[2021-10-02 05:24] LABS: Basophils % 0.2 % (0.0-0.8); Eosinophils # 0.2 10*3/uL (0.0-0.87); Hematocrit 33.7 VOL% (42.0-52.0); Hemoglobin 10.6 GM/DL (14.0-18.0); Immature Granulocytes % 0.2 %; Immature Granulocytes Absolute 0.01 #; Lymphocytes # 1.3 10*3/uL (1.4-4.0); Lymphocytes % 24.3 % (21.2-54.2); Mean Corpuscular HGB Conc 31.5 GM/DL (32-36); Mean Corpuscular Volume 90.3 FL (87-102); Mean Platelet Volume 10.9 FL (9.6-12.0); Monocytes % 9.6 % (1.7-12.7); Neutrophils % 61.7 % (38.7-73.9); Platelet Count 162 T/CUMM (130-400); Red Blood Count 3.73 MC/CUMM (3.8-5.5); Red Cell Distribution Width 13.5 % (9.3-17.3); White Blood Count 5.3 T/CUMM (4-12)
[2021-10-02 05:50] LABS: Calcium 8.1 MG/DL (8.5-10.1); Osmolality,Calculated 274.8 MOS/KG (273-304); Potassium 3.7 MMOL/L (3.5-5.1)
[2021-10-02 08:37] LABS: INR 1.2
[2021-10-02] MEDS ORDERED: INSULIN GLARGINE 100 UNIT/ML SUBCUT SCH (09:00)
[2021-10-02] MEDS ORDERED: DUTASTERIDE 0.5 MG CAPSULE PO SCH (11:00)
[2021-10-02] MEDS: INSULIN REGULAR 100 UNIT/ML SUBCUT SCH ×3 (11:39→16:12)
[2021-10-02] MEDS: MYLANTA/LIDO VISC/NYST 180 ML BOTTLE SWISH/SWAL SCH ×3 (11:39→16:14)
[2021-10-02] MEDS: POLYETHYLENE GLYCOL POWDER 17 GM PACK PO SCH (11:41)
[2021-10-02] MEDS: ASCORBIC ACID 500 MG TABLET PO SCH (11:41)
[2021-10-02] MEDS: FUROSEMIDE 20 MG TABLET PO SCH (11:41)
[2021-10-02] MEDS: SODIUM ZIRCONIUM CYCLOSILICATE 10 GM PACK PO SCH (11:41)
[2021-10-02] MEDS: LORazepam 1 MG TABLET PO SCH (11:41)
[2021-10-02] MEDS: CHOLECALCIFEROL 1,000 UNIT TABLET PO SCH (11:42)
[2021-10-02] MEDS: BACILLUS COAGULANS CAPLET PO SCH (11:42)
[2021-10-02] MEDS: DOCUSATE SODIUM 100 MG CAPSULE PO SCH (11:42)
[2021-10-02] MEDS: PANTOPRAZOLE 40 MG TABLET PO SCH (11:42)
[2021-10-02] MEDS: BUDESONIDE/FORMOTEROL 160-4.5 INHALER 6 GM INH SCH (11:43)
[2021-10-02] MEDS: FLUCONAZOLE INJ 200 MG/100 ML PREMIX IV SCH (15:54)
[2021-10-02 16:03] VITALS: BP 121/67
[2021-10-02] MEDS: SODIUM CHLORIDE 0.45% 1,000 ML IV SCH (16:13)
[2021-10-02] MEDS: ACETAMINOPHEN 500 MG TABLET PO PRN (17:16)
== END 2021-10-02 17:59 | DRG 871 ==
LOC: N.ED 23:06 → N.EDINP 09-06 05:35 → SUATTDRO 09-06 05:35 → N.ICU 09-06 07:41 → N.5E 09-12 18:52
PROVIDERS: ADMIT Internal Medicine; ATTEND Internal Medicine